=== PATIENT | female | born 1935 | race Caucasian/White ===

== ENCOUNTER 2016-07-01 13:37 | Inpatient (IN) | payer MEDICARE ==
[~2016-07-01] VITALS: Ht 167.6 cm; Wt 89.0 kg
[~2016-07-01 13:37] MED LIST: ALLO100T PO; AMLO2.5T PO; CALC667T PO; CEPH500C PO; COUM4TAB7 PO; GABA300C3 PO; RENAL PO; [UNRECOGNIZED DRUG - CODE]
[2016-07-01 13:42] VITALS: BP 180/74; PULSE 70; RESP 15; TEMP 97.8; O2SAT 97
--- NOTE | 2016-07-01 13:43 | PD ---
Physical Exam Time Seen by Provider: 13:42 Narrative 81 y/o female presents for evaluation of a "heel infection." Sent by her physician. Seen at triage desk. Awaiting bed placement. [facility] Medical Record Reviewed: Yes Supervised Visit with AICHA: Manuelito Tena July 01, 2016 13:43
[2016-07-01] MEDS ORDERED: ALLO100T PO (14:03)
[2016-07-01] MEDS ORDERED: LEVO25TA4 PO (14:03)
[2016-07-01] MEDS ORDERED: TRAM50TA PO (14:03)
[2016-07-01] MEDS ORDERED: NORV2.5T PO (14:03)
[2016-07-01] MEDS ORDERED: ALEN35TA24 PO (14:03)
[2016-07-01] MEDS ORDERED: CALC667C PO (14:03)
[2016-07-01] MEDS ORDERED: WARF-23 PO ×2 (14:03→17:10)
[2016-07-01] MEDS ORDERED: VITATAB11 PO (14:03)
[2016-07-01] MEDS ORDERED: PIPERACIL-TAZO 2.25 GM PREMIX 50 ML IV ONE (14:15)
[2016-07-01 14:50] LABS: AUTOMATED NEUTROPHIL # 3.2 TH/MM3 (1.8-7.7); BASOPHIL # 0.1 TH/MM3 (0-0.2); BASOPHIL % 0.6 % (0.0-2.0); EOSINOPHIL # 0.4 TH/MM3 (0-0.4); EOSINOPHIL % 4.4 % (0.0-4.0); HEMATOCRIT 32.2 % (35.0-46.0); LYMPH % 48.5 % (9.0-44.0); LYMPHOCYTE # 3.9 TH/MM3 (1.0-4.8); MEAN CORPUSCULAR HEMOGLOBIN 36.4 PG (27.0-34.0); MEAN CORPUSCULAR HGB CONC 34.1 % (32.0-36.0); NEUT % 39.5 % (16.0-70.0); PLATELET COUNT 218 TH/MM3 (150-450); RED BLOOD COUNT 3.01 MIL/MM3 (4.00-5.30); RED CELL DISTRIBUTION WIDTH 18.1 % (11.6-17.2)
[2016-07-01 14:55] LABS: HEMO FLAGS DIFF FINAL
[2016-07-01 15:05] LABS: ALKALINE PHOSPHATASE 83 U/L (45-117); TOTAL BILIRUBIN ADULT 0.5 MG/DL (0.2-1.0)
[2016-07-01 15:15] LABS: ALT (GPT) 15 U/L (10-53); ANION GAP 9 MEQ/L (5-15); AST (GOT) 23 U/L (15-37); BICARBONATE 26.4 MEQ/L (21.0-32.0); BLOOD UREA NITROGEN 26 MG/DL (7-18); CHLORIDE 101 MEQ/L (98-107); GLOMERULAR FILTRATION RATE 8 ML/MIN (>89); POTASSIUM 4.4 MEQ/L (3.5-5.1); SODIUM (NA) 136 MEQ/L (136-145)
[2016-07-01 15:18] VITALS: BP 149/63; PULSE 67; RESP 16; TEMP 97.8; O2SAT 98
--- NOTE | 2016-07-01 15:31 | PD ---
HPI Chief Complaint: Injury Time Seen by Provider: 13:58 Travel History International Travel<30 days: No Contact w/Intl Traveler<30days: No Traveled to known affect area: No History of Present Illness HPI This is an 81-year-old female who has a history of diabetes and end-stage renal disease who presents to the emergency department sent in by Dr. Alfonso in for concern for cellulitis involving her right heel. The patient recently had a prolonged hospitalization and penitentiary stay during which she developed a decubitus ulcer on her right heel. She's been on doxycycline for it but over the past 2 days the redness and breakdown of the skin have gotten worse, constant, moderate severity, with no associated fevers or chills. She went to see her finishing range operator today who was concerned about a deeper infection and recommended that she had be admitted to the hospital for IV antibiotics. She also requested that the vascular surgeon evaluate the patient PFSH Past Medical History Cancer: Yes (RIGHT LUNG) Cardiovascular Problems: Yes Diabetes: Yes Patient Takes Glucophage: No Dialysis: Yes (M-W-F) Diminished Hearing: No Glaucoma: No Genitourinary: Yes Hepatitis: No Hiatal Hernia: No Hypertension: Yes Respiratory: Yes (HX LUNG CANCER (RLL)) Thyroid Disease: No Influenza Vaccination: Yes Menopausal: Yes Past Surgical History Abdominal Surgery: Yes (CHOLECYSTECTOMY, APPY) Cardiac Surgery: Yes (CARDIAC STENT) Genitourinary Surgery: Yes (HYSTERECTOMY) Pacemaker: No Thoracic Surgery: Yes (RIGHT LOWER LOBECTOMY) Other Surgery: Yes (vascular surgery- dialysis shunt in right upper arm) Social History Alcohol Use: No Tobacco Use: No (quit smoking 30 years ago) Substance Use: No Allergies-Medications (Allergen,Severity, Reaction): Coded Allergies: Metformin (Unverified Allergy, Severe, swelling, 07/01/16) SWELLING IN FACE Mevacor (Verified Allergy, Unknown, rash, 07/01/16) HMG-CoA Reductase Inhibitors (Verified Adverse Reaction, Mild, weakness, ) Reported Meds & Prescriptions Reported Meds & Active Scripts Active Reported Calcium Acetate (Calcium Acetate (Phosphate Bin) 667 Mg Cap 667 Tab PO TID PRN Norvasc (Amlodipine Besylate) 2.5 Mg Tab 2.5 Mg PO DAILY Vitamin B Complex (B-Complex Vitamins) 1 Tab 1 Tab PO DAILY Allopurinol 100 Mg Tab 100 Mg PO DAILY Tramadol (Tramadol HCl) 50 Mg Tab 50 Mg PO Q6H PRN Warfarin 5 Mg Tab 5 Mg PO DAILY Levothyroxine (Levothyroxine Sodium) 25 Mcg Tab 25 Mcg PO DAILY Alendronate (Alendronate Sodium) 35 Mg Tab 35 Mg PO Q7D Review of Systems Except as stated in HPI: all other systems reviewed are Neg Physical Exam Narrative GENERAL: Frail elderly female in no acute distress SKIN: 2 cm ulceration at the heel with surrounding redness and warmth that extends up to the mid calf, no purulent drainage HEAD: Atraumatic. Normocephalic. EYES: Pupils equal and round. No injection or drainage. ENT: Moist mucous membranes NECK: Trachea midline. CARDIOVASCULAR: Regular rate and rhythm. No murmur appreciated. Bilateral lower extremities are warm with no palpable DP pulses. Capillary refill is normal. RESPIRATORY: Clear to auscultation. Breath sounds equal bilaterally. GASTROINTESTINAL: Abdomen soft, non-tender, nondistended. MUSCULOSKELETAL: No obvious deformities. NEUROLOGICAL: Awake and alert. No obvious cranial nerve deficits. Moving all extremities. PSYCHIATRIC: Appropriate mood and affect; insight and judgment normal. Data Data Last Documented VS Vital Signs Date Time Temp Pulse Resp B/P Pulse Ox O2 Delivery O2 Flow Rate FiO2 07/01/16 15:18 97.8 67 16 149/63 98 Room Air Orders Electrocardiogram (07/01/16 ) Complete Blood Count With Diff (07/01/16 14:11) Comprehensive Metabolic Panel (07/01/16 14:11) ^ Insert Iv (07/01/16 14:11) Westergren Sedimentation Rate (07/01/16 14:11) C-Reactive Protein (Crp) (07/01/16 14:11) Piperacil-Tazo 2.25 Gm Premix (Zosyn 2.2 (07/01/16 14:15) Wound Culture And Gram Stain (07/01/16 14:11) Labs Laboratory Tests Test 07/01/16 14:10 White Blood Count 8.0 TH/MM3 Red Blood Count 3.01 MIL/MM3 Hemoglobin 11.0 GM/DL Hematocrit 32.2 % Mean Corpuscular Volume 107.0 FL Mean Corpuscular Hemoglobin 36.4 PG Mean Corpuscular Hemoglobin 34.1 % Concent Red Cell Distribution Width 18.1 % Platelet Count 218 TH/MM3 Mean Platelet Volume 8.6 FL Neutrophils (%) (Auto) 39.5 % Lymphocytes (%) (Auto) 48.5 % Monocytes (%) (Auto) 7.0 % Eosinophils (%) (Auto) 4.4 % Basophils (%) (Auto) 0.6 % Neutrophils # (Auto) 3.2 TH/MM3 Lymphocytes # (Auto) 3.9 TH/MM3 Monocytes # (Auto) 0.6 TH/MM3 Eosinophils # (Auto) 0.4 TH/MM3 Basophils # (Auto) 0.1 TH/MM3 CBC Comment DIFF FINAL Differential Comment Erythrocyte Sedimentation Rate 38 mm/hr Sodium Level 136 MEQ/L Potassium Level 4.4 MEQ/L Chloride Level 101 MEQ/L Carbon Dioxide Level 26.4 MEQ/L Anion Gap 9 MEQ/L Blood Urea Nitrogen 26 MG/DL Creatinine 5.33 MG/DL Estimat Glomerular Filtration 8 ML/MIN Rate Random Glucose 207 MG/DL Calcium Level 9.0 MG/DL Total Bilirubin 0.5 MG/DL Aspartate Amino Transf 23 U/L (AST/SGOT) Alanine Aminotransferase 15 U/L (ALT/SGPT) Alkaline Phosphatase 83 U/L C-Reactive Protein 1.59 MG/DL Total Protein 6.0 GM/DL Albumin 2.6 GM/DL MDM Medical Decision Making Medical Screen Exam Complete: Yes Emergency Medical Condition: Yes Interpretation(s) Afebrile, no tachycardia, hypertensive No leukocytosis Macrocytic anemia Sedimentation rate is 38 CRP is 1.6 Differential Diagnosis Cellulitis, diabetic foot infection, abscess, osteomyelitis, sepsis Narrative Course This is an 81-year-old female who presents to the emergency department with a cellulitis involving her right heel. She was sent in by her finishing range operator for admission for IV antibiotics and vascular surgery consultation. She was placed on a monitor and an IV was established. Labs are obtained which demonstrate elevated inflammatory markers. Patient was given a dose of IV Zosyn. Dr. Espinoza is aware of the patient. She will be admitted for continued management. Diagnosis Primary Impression: Cellulitis Qualified Code: L03.115 - Cellulitis of right lower extremity Admitting Information Admitting Physician Requests: Observation Lila Jain MD July 01, 2016 15:31
[2016-07-01 16:30] VITALS: BP 122/72; PULSE 67; RESP 16; O2SAT 99
--- NOTE | 2016-07-01 17:02 | HHI.HP ---
HPI Service [facility] Hospitalists Primary Care Physician Tereza Mary M.D. Admission Diagnosis HEEL ULCERATION. Chief Complaint: HEEL ULCERATION. Travel History International Travel<30 Days: No Contact w/Intl Traveler <30 Da: No Traveled to Known Affected Are: No History of Present Illness Pt is 81 yo with dm diet controlled, htn, cad, esrd who broke her left hip and had kai Samuel Fish. Then went to [facility] for "1month". Pt says the skin over her heels were getting irritated at the snf. after d/c she reports a 10 day course of doxy for left leg cellulitis and says it resolved. But over past several days noted right heel ulceration and saw podiatry today..who sent her here for vascular eval and iv abx. Review of Systems Other right heel ulcer. Past Family Social History Past Medical History cad, cabg x 3 right lung ca. s/p resection. ..no chemoradiation. hypothyroidism htn left leg dvt esrd. on hd mwf left hip fx .s/p left kai right hip fx s/p pinning left tka kathleen/bso cholecystectomy appe Reported Medications Calcium Acetate (Calcium Acetate (Phosphate Bin) 667 Mg Cap 667 Tab PO TID PRN Norvasc (Amlodipine Besylate) 2.5 Mg Tab 2.5 Mg PO DAILY Vitamin B Complex (B-Complex Vitamins) 1 Tab 1 Tab PO DAILY Allopurinol 100 Mg Tab 100 Mg PO DAILY Tramadol (Tramadol HCl) 50 Mg Tab 50 Mg PO Q6H PRN Warfarin 6mg daily Levothyroxine (Levothyroxine Sodium) 25 Mcg Tab 25 Mcg PO DAILY Alendronate (Alendronate Sodium) 35 Mg Tab 35 Mg PO Q7D Allergies: Coded Allergies: Metformin (Unverified Allergy, Severe, swelling, 07/01/16) SWELLING IN FACE Mevacor (Verified Allergy, Unknown, rash, 07/01/16) HMG-CoA Reductase Inhibitors (Verified Adverse Reaction, Mild, weakness, ) Family History nc Social History tob x 20yr 1ppd. quit 30yrs ago Physical Exam Vital Signs nad heart reg lung cta abd s/nt ext right heel necrotic center ulceration with some surrounding erythema. not hot to touch. Vital Signs Date Time Temp Pulse Resp B/P Pulse Ox O2 Delivery O2 Flow Rate FiO2 07/01/16 16:30 67 16 122/72 99 Room Air 07/01/16 15:18 97.8 67 16 149/63 98 Room Air 07/01/16 14:06 67 16 07/01/16 13:42 97.8 70 15 180/74 97 Laboratory Laboratory Tests Test 07/01/16 14:10 White Blood Count 8.0 Red Blood Count 3.01 Hemoglobin 11.0 Hematocrit 32.2 Mean Corpuscular Volume 107.0 Mean Corpuscular Hemoglobin 36.4 Mean Corpuscular Hemoglobin 34.1 Concent Red Cell Distribution Width 18.1 Platelet Count 218 Mean Platelet Volume 8.6 Neutrophils (%) (Auto) 39.5 Lymphocytes (%) (Auto) 48.5 Monocytes (%) (Auto) 7.0 Eosinophils (%) (Auto) 4.4 Basophils (%) (Auto) 0.6 Neutrophils # (Auto) 3.2 Lymphocytes # (Auto) 3.9 Monocytes # (Auto) 0.6 Eosinophils # (Auto) 0.4 Basophils # (Auto) 0.1 CBC Comment DIFF FINAL Differential Comment Erythrocyte Sedimentation Rate 38 Sodium Level 136 Potassium Level 4.4 Chloride Level 101 Carbon Dioxide Level 26.4 Anion Gap 9 Blood Urea Nitrogen 26 Creatinine 5.33 Estimat Glomerular Filtration 8 Rate Random Glucose 207 Calcium Level 9.0 Total Bilirubin 0.5 Aspartate Amino Transf 23 (AST/SGOT) Alanine Aminotransferase 15 (ALT/SGPT) Alkaline Phosphatase 83 C-Reactive Protein 1.59 Total Protein 6.0 Albumin 2.6 Date/Time Procedure Status Source Growth 07/01/16 14:00 Gram Stain Received Wound Heel Pending 07/01/16 14:00 Wound Culture Received Wound Heel Pending Result Diagram: 07/01/16 1410 07/01/16 1410 Assessment and Plan Problem List: (1) Heel ulcer Status: Acute Plan: Pt is 81 yo with dm diet controlled, htn, cad, esrd who broke her left hip and had kai Samuel Fish. Then went to [facility] for "1month". Pt says the skin over her heels were getting irritated at the snf. after d/c she reports a 10 day course of doxy for left leg cellulitis and says it resolved. But over past several days noted right heel ulceration and saw podiatry today..who sent her here for vascular eval and iv abx. Dr García Vascular consulted to eval blood supply to necrotic appearing heel ulceration Will consult ID for opinion regarding need for abx. At present I'm not sure this is best thing until further clarification. consult podiatry consult nephrology. cont home meds PT eval (2) DM (diabetes mellitus) Status: Chronic Plan: reportedly diet controlled ssi. (3) CAD (coronary artery disease) Status: Chronic Plan: home meds (4) ESRD (end stage renal disease) on dialysis Status: Chronic Plan: consult nephrology for hd (5) History of lung cancer Status: Resolved (6) Hypothyroid Status: Chronic Physician Certification 2 Midnight Certification Type: Admission for Inpatient Services Order for Inpatient Services 3The services are ordered in accordance with Medicare regulations or non- Medicare payer requirements, as applicable. In the case of services not specified as inpatient-only, they are appropriately provided as inpatient services in accordance with the 2-midnight benchmark. Estimated LOS (days): 3 3 days is the estimated time the patient will need to remain in the hospital, assuming treatment plan goals are met and no additional complications. Post-Hospital Plan: Home Jai Veras MD July 01, 2016 17:02
--- NOTE | 2016-07-01 17:30 | MB ---
cc: JIGAR BARRIENTOS MD DATE OF CONSULTATION 07/01/[address] Barrientos, surgery REFERRING PHYSICIAN Dr. Cal Alfonso, podiatry. REASON FOR CONSULTATION Ischemia of the right foot, end-stage renal disease, diabetes mellitus. HISTORY OF THE PRESENT ILLNESS This 81-year-old lady with multiple medical problems presented to the emergency department after being sent from Dr. Alfonso's office with cellulitis of the right heel and right foot. The patient apparently was prolonged hospitalized before and developed a small decubitus of the right heel but now the whole foot appears to be shiny and sort of ischemic. Hence the admission. PAST MEDICAL HISTORY Is that of: 1. Squamous carcinoma of the lung. 2. Diabetes mellitus. 3. Hypertension. 4. End-stage renal disease. The patient is on dialysis three times a week. PAST SURGICAL HISTORY Is that of: 1. Cholecystectomy. 2. Appendectomy. 3. Hysterectomy. 4. Coronary artery stenting. 5. Bilateral hip pinning. 6. Right knee replacement. 7. And right lower lobe lobectomy. 8. As well as dialysis shunt. SOCIAL HISTORY The patient does not drink. Stopped smoking many, many years ago. REVIEW OF SYSTEMS Is normal except above noted. The patient is awake and alert and oriented. PHYSICAL EXAMINATION GENERAL: Reveals a pleasant 81-year-old lady. HEENT: Normocephalic. No trauma to the head. Pupils equally reactive. Extraocular muscles intact. NECK: Supple. Bilateral carotid pulses. No bruits. CHEST: Clear. Bilateral breath sounds decreased over both lung beckwith consistent with some degree of senile emphysema. HEART: Regular rhythm. ABDOMEN: Soft, slightly obese. Active bowel sounds. No rebound or guarding. No masses. Scars from previous surgery noted. EXTREMITIES: The patient actually has palpable femoral pulses bilateral. She has strong Doppler popliteal pulses and dorsalis pedis, posterior tibial strong by Doppler. NEUROLOGIC: She is intact. SKIN: She has a small lesion on both heels, right more than left, however, the right foot is sort of shiny and ischemic appearing especially in the distal area of the toes. The patient will get a full workup and we will see which way to go. Thank you much for the referral. Stevebodachirag EDWARDS/KK /4:53 PM 5:14 PM
[2016-07-01] MEDS ORDERED: PILL SPLITTER OTHER PRN (18:15)
--- NOTE | 2016-07-01 18:31 | PD.CONS ---
HPI Service Nephrology Consult Requested By Dr. Veras Reason for Consult ESRD management Primary Care Physician Tereza Mary M.D. History of Present Illness Patient is a 81-year-old with history of diabetes, hypertension, end-stage renal disease on hemodialysis she has a right upper arm AV graft was on dialysis on Thursday, Thursday and Thursday, patient has been having cellulitis of the legs and has developed a right heel ulcer which is not healing patient is here for further workup she states that she is going to have a CTA check her circulation. Review of Systems Constitutional: COMPLAINS OF: Fatigue Integumentary: COMPLAINS OF: Rash Neurologic: COMPLAINS OF: Abnormal gait Past Family Social History Allergies: Coded Allergies: Metformin (Unverified Allergy, Severe, swelling, 07/01/16) SWELLING IN FACE Mevacor (Verified Allergy, Unknown, rash, 07/01/16) HMG-CoA Reductase Inhibitors (Verified Adverse Reaction, Mild, weakness, ) Past Medical History Diabetes Hypertension ESRD History of lung cancer status post resection Anemia Hypothyroidism Congestive heart Failure Coronary artery disease Peripheral vascular Diabetic foot ulcer Cellulitis of legs Past Surgical History Appendectomy Cholecystectomy AV graft Right knee surgery Total hip replacement bilaterally Stent placement for coronary artery disease Right lower lobe resection Reported Medications Reported Meds & Active Scripts Active Warfarin 5 Mg Tab 6 Mg PO DAILY Reported Calcium Acetate (Calcium Acetate (Phosphate Bin) 667 Mg Cap 667 Tab PO TID PRN Norvasc (Amlodipine Besylate) 2.5 Mg Tab 2.5 Mg PO DAILY Vitamin B Complex (B-Complex Vitamins) 1 Tab 1 Tab PO DAILY Allopurinol 100 Mg Tab 100 Mg PO DAILY Tramadol (Tramadol HCl) 50 Mg Tab 50 Mg PO Q6H PRN Levothyroxine (Levothyroxine Sodium) 25 Mcg Tab 25 Mcg PO DAILY Alendronate (Alendronate Sodium) 35 Mg Tab 35 Mg PO Q7D Active Ordered Medications Current Medications Medications (Trade) Dose Ordered Sig/[place] Route Start Time Stop Time Status Last Admin (Zyloprim) 100 mg DAILY PO 07/02/16 09:00 (Norvasc) 2.5 mg DAILY PO 07/02/16 09:00 (Synthroid) 25 mcg DAILY@06 PO 07/02/16 06:00 (Ultram) 50 mg Q6H PRN PO 07/01/16 17:00 (Coumadin) 6 mg DAILY@16 PO 07/02/16 16:00 UNV (Pill Splitter) 1 ea UNSCH PRN OTHER 07/01/16 18:15 Family History Noncontributory Social History Denies smoking or alcohol use Physical Exam Vital Signs Vital Signs Date Time Temp Pulse Resp B/P Pulse Ox O2 Delivery O2 Flow Rate FiO2 07/01/16 16:30 67 16 122/72 99 Room Air 07/01/16 15:18 97.8 67 16 149/63 98 Room Air 07/01/16 14:06 67 16 07/01/16 13:42 97.8 70 15 180/74 97 Physical Exam GENERAL: Well-nourished, well-developed patient. SKIN: Warm and dry. HEAD: Normocephalic. EYES: No scleral icterus. No injection or drainage. NECK: Supple, trachea midline. No JVD or lymphadenopathy. CARDIOVASCULAR: Regular rate and rhythm without murmurs, gallops, or rubs. RESPIRATORY: Breath sounds equal bilaterally. No accessory muscle use. GASTROINTESTINAL: Abdomen soft, non-tender, nondistended. EXTREMITIES: No cyanosis, or edema. Right heel has a ulcer posteriorly AV graft and right arm NEUROLOGICAL: Awake, alert, and oriented x 3. Non-focal. Laboratory Laboratory Tests Test 07/01/16 14:10 White Blood Count 8.0 Red Blood Count 3.01 Hemoglobin 11.0 Hematocrit 32.2 Mean Corpuscular Volume 107.0 Mean Corpuscular Hemoglobin 36.4 Mean Corpuscular Hemoglobin 34.1 Concent Red Cell Distribution Width 18.1 Platelet Count 218 Mean Platelet Volume 8.6 Neutrophils (%) (Auto) 39.5 Lymphocytes (%) (Auto) 48.5 Monocytes (%) (Auto) 7.0 Eosinophils (%) (Auto) 4.4 Basophils (%) (Auto) 0.6 Neutrophils # (Auto) 3.2 Lymphocytes # (Auto) 3.9 Monocytes # (Auto) 0.6 Eosinophils # (Auto) 0.4 Basophils # (Auto) 0.1 CBC Comment DIFF FINAL Differential Comment Erythrocyte Sedimentation Rate 38 Sodium Level 136 Potassium Level 4.4 Chloride Level 101 Carbon Dioxide Level 26.4 Anion Gap 9 Blood Urea Nitrogen 26 Creatinine 5.33 Estimat Glomerular Filtration 8 Rate Random Glucose 207 Calcium Level 9.0 Total Bilirubin 0.5 Aspartate Amino Transf 23 (AST/SGOT) Alanine Aminotransferase 15 (ALT/SGPT) Alkaline Phosphatase 83 C-Reactive Protein 1.59 Total Protein 6.0 Albumin 2.6 Date/Time Procedure Status Source Growth 07/01/16 14:00 Gram Stain Received Wound Heel Pending 07/01/16 14:00 Wound Culture Received Wound Heel Pending Result Diagram: 07/01/16 1410 07/01/16 1410 Assessment and Plan Problem List: (1) ESRD (end stage renal disease) on dialysis Plan: Hemodialysis will be arranged for Thursday, Thursday and Thursday according to her outpatient schedule continue supportive care She may need a CTA of the legs and we will have to arrange it to prior to dialysis (2) DM (diabetes mellitus) Plan: Continue to monitor blood sugars (3) Heel ulcer Plan: CTA ordered (4) Cellulitis Plan: She is on antibiotic vancomycin can be given at dialysis Problem Qualifiers (1) DM (diabetes mellitus): (2) Cellulitis: Qualified Code: L03.115 - Cellulitis of right lower extremity Obdulia Washburn MD July 01, 2016 18:31
[2016-07-01] MEDS ORDERED: VANCOMYCIN INJ 1,000 MG in SODIUM CHLOR 0.9% 250 ML INJ 250 ML IV SCH (18:45)
[2016-07-01] MEDS ORDERED: IODIXANOL 320 MG/ML 50 ML VIAL (for Rad CT) IV ONE (18:58)
[2016-07-01 19:08] LABS: INTERNATIONAL NORMALIZED RATIO 1.2 RATIO; PROTHROMBIN TIME - PATIENT 13.6 SEC (9.8-11.6)
[2016-07-01 20:00] VITALS: BP 117/54; PULSE 69; RESP 17; TEMP 97; O2SAT 95
[2016-07-01] MEDS: traMADol HCL 50 MG TAB PO PRN (22:10)
--- NOTE | 2016-07-01 23:24 | RADRPT ---
EXAM DATE/TIME: 07/01/2016 18:37 [place] COMPARISON: No previous studies available for comparison. INDICATIONS : Ischemia right foot IV CONTRAST: 92 cc Visipaque (iodixanol) IV RADIATION DOSE: 12.70 CTDIvol (mGy) MEDICAL HISTORY : Carcinoma, lung. Cardiovascular disease Diabetes mellitus type 2.Dialysis SURGICAL HISTORY : Hysterectomy. Neuromstimultor ENCOUNTER: Initial ACUITY: 1 week PAIN SCALE: 4/10 LOCATION: Right foot TECHNIQUE: Volumetric scanning was performed using a multi-row detector CT scanner. The data was post processed with a variety of visualization algorithms including full volume maximum intensity projection, multi -planar sliding thin slab reformation, curved planar reformation, and surface rendering techniques. Using automated exposure control and adjustment of the mA and/or kV according to patient size, radiat ion dose was kept as low as reasonably achievable to obtain optimal diagnostic quality images. FINDINGS: Examination of the lung bases demonstrates no abnormality. No pleural fluid is identified. No pulmona ry nodules are present. The liver and spleen are normal in size and no focal defects are identified. The gallbladder and pancreas are unremarkable. No intrahepatic or extrahepatic ductal dilatation is s een. The adrenal glands and kidneys appear normal bilaterally. No hydronephrosis or mass lesions are identified. An inferior vena cava filter is in place. There is diverticulosis without evidence of div erticulitis. The aorta is normal in caliber. There is no evidence of aneurysm or dissection. There is 70-80% steno sis at the origin of the renal arteries bilaterally. There is 50-60% stenosis at the origin of the ce liac and superior mesenteric arteries. Examination of the right lower extremity demonstrates no evidence of inflow stenosis. The common femo ral artery is patent. The there is arterial magna present with limited evaluation of the femoral robin john. There is dense calcification of the trifurcation vessels as which limits evaluation. No segment al occlusion is identified. Examination of the left lower extremity demonstrates no evidence of inflow stenosis. The common femor al artery is patent. The proximal superficial femoral artery is patent. There is dense calcification of the popliteal and infrapopliteal vessels. CONCLUSION: 1. No evidence of inflow stenosis. 2. Mild arterial magna with severe calcific lower extremity disease bilaterally. Catheter angiography is recommended for further evaluation if clinically indicated. Tanmay Greenberg MD on July 01, 2016 at 23:12 Board Certified Radiologist. This report was verified electronically.
[2016-07-02] VITALS: BP 117/54; PULSE 69; RESP 17; TEMP 97; O2SAT 95
[2016-07-02] MEDS ORDERED: LEVOTHYROXINE SODIUM 25 MCG TAB PO SCH (06:00)
[2016-07-02 06:23] LABS: AUTOMATED NEUTROPHIL # 2.4 TH/MM3 (1.8-7.7); BASOPHIL % 0.6 % (0.0-2.0); EOSINOPHIL # 0.3 TH/MM3 (0-0.4); EOSINOPHIL % 5.2 % (0.0-4.0); HEMATOCRIT 29.8 % (35.0-46.0); HEMO FLAGS DIFF FINAL; LYMPH % 47.3 % (9.0-44.0); MEAN CELL VOLUME 106.5 FL (80.0-100.0); MEAN CORPUSCULAR HEMOGLOBIN 35.2 PG (27.0-34.0); MONO % 8.9 % (0.0-8.0); PLATELET COUNT 168 TH/MM3 (150-450); RED BLOOD COUNT 2.79 MIL/MM3 (4.00-5.30); RED CELL DISTRIBUTION WIDTH 17.8 % (11.6-17.2); WHITE BLOOD COUNT 6.4 TH/MM3 (4.0-11.0)
[2016-07-02 06:33] LABS: INTERNATIONAL NORMALIZED RATIO 1.2 RATIO; PROTHROMBIN TIME - PATIENT 13.6 SEC (9.8-11.6)
[2016-07-02 06:43] LABS: BICARBONATE 25.6 MEQ/L (21.0-32.0); POTASSIUM 4.7 MEQ/L (3.5-5.1)
[2016-07-02] MEDS: traMADol HCL 50 MG TAB PO PRN (06:49)
[2016-07-02 08:00] VITALS: BP 139/65; PULSE 71; RESP 20; TEMP 97.9; O2SAT 96
[2016-07-02] MEDS ORDERED: SODIUM CHLOR 0.9% 1000 ML INJ 1,000 ML IV PRN ×3 (08:27)
[2016-07-02] MEDS ORDERED: SODIUM CHLORIDE 0.9% FLUSH 10 ML FLUSH IV FLUSH PRN (08:30)
[2016-07-02] MEDS ORDERED: EPOETIN ALFA 4,000 UNITS/ML VIAL IV PRN (08:30)
[2016-07-02] MEDS ORDERED: MANNITOL 12.5 GM/50 ML VIAL IV PRN (08:30)
[2016-07-02] MEDS ORDERED: ALBUMIN HUMAN 25% 25 GM/100 ML BAGP IV PRN (08:30)
[2016-07-02] MEDS ORDERED: cloNIDine HCL 0.1 MG TAB PO PRN (08:30)
[2016-07-02] MEDS ORDERED: ONDANSETRON HCL 4 MG/2 ML VIAL IV PRN (08:30)
[2016-07-02] MEDS ORDERED: HEPARIN SODIUM - IV 10,000 UNITS/10 ML VIAL IVF PRN ×2 (08:30)
[2016-07-02] MEDS ORDERED: ACETAMINOPHEN 325 MG TAB PO PRN (08:30)
[2016-07-02] MEDS ORDERED: NITROGLYCERIN 0.4 MG SL 25 TABS/BTL SL PRN (08:30)
[2016-07-02] MEDS ORDERED: diphenhydrAMINE HCL 25 MG CAP PO PRN (08:30)
[2016-07-02] MEDS ORDERED: GELATIN 12 MM/7 MM FOAM TOP PRN (08:30)
[2016-07-02] MEDS ORDERED: amLODIPine BESYLATE 5 MG TAB PO SCH (09:00)
[2016-07-02] MEDS ORDERED: ALLOPURINOL 100 MG TAB PO SCH (09:00)
--- NOTE | 2016-07-02 09:09 | HHI.NPPN ---
Subjective History of Present Illness 81 year old WF with ESRD, Rt heel ulcer/cellulitis Review of Systems Musculoskeletal MS: Pain/Stiffness Objective Data Data 07/01/16 07/02/16 19:00 07:00 Intake Total 180 ml 480 ml Balance 180 ml 480 ml Intake Oral 180 ml 480 ml IV Total 0 ml # Voids 3 # Bowel Movements 0 Vital Signs Date Time Temp Pulse Resp B/P Pulse Ox O2 Delivery O2 Flow Rate FiO2 07/02/16 00:00 97.0 69 17 117/54 95 07/01/16 20:00 97.0 69 17 117/54 95 07/01/16 16:30 67 16 122/72 99 Room Air 07/01/16 15:18 97.8 67 16 149/63 98 Room Air 07/01/16 14:06 67 16 07/01/16 13:42 97.8 70 15 180/74 97 -: 07/02/16 0543 07/02/16 0543 Microbiology 07/01/16 Gram Stain - Final, Resulted 07/01/16 Wound Culture, Resulted Pending Imaging Last Impressions Aorta w/Runoff CTA 07/01/16 0000 Signed Impressions: Service Date/Time: Friday, July 01, 2016 18:37 - CONCLUSION: 1. No evidence of inflow stenosis. 2. Mild arterial magna with severe calcific lower extremity disease bilaterally. Catheter angiography is recommended for further evaluation if clinically indicated. Tanmay Greenberg MD Physical Exam General Appearance: Well Developed, Well Nourished Neck Neck Exam: Neck Supple Pulmonary Resp Exam: Clear Bilaterally, Breath Sounds Equal Cardiology CV Exam: Regular, Normal Sinus Rhythm Gastrointestinal/Abdomen GI Exam: Soft, Non-Tender, Bowel Sounds Present Integumentary Skin Exam: Ulcer(s) (rt heel) Extremeties Extremities Exam: No Edema Neurologic Neuro Exam: Alert, Awake Assessment/Plan Problem List: (1) ESRD (end stage renal disease) on dialysis Plan: Hemodialysis will be arranged for Thursday, Thursday and Thursday CTA no inflow stenosis, heavy calcification of vessels HD today 07/02 1110am seen at dialysis Dr. Astrid Coffeyo UF 2L (2) DM (diabetes mellitus) Plan: Continue to monitor blood sugars (3) Heel ulcer Plan: CTA reviewed (4) Cellulitis Plan: She is on antibiotic vancomycin can be given at dialysis Problem Qualifiers (1) DM (diabetes mellitus): (2) Cellulitis: Qualified Code: L03.115 - Cellulitis of right lower extremity Obdulia Washburn MD July 02, 2016 09:09
--- NOTE | 2016-07-02 09:16 | EKG ---
Date Performed: 07/01/2016 Time Performed: 13:56:38 PTAGE: 81 years EKG: Sinus rhythm BORDERLINE LEFT AXIS DEVIATION INCOMPLETE RIGHT BUNDLE BRANCH BLOCK MODERATE ST DEPRESSION ABNORMAL ECG PREVIOUS TRACING : 06/05/2014 08.19 DOCTOR: John May Interpretating Date/Time 07/02/2016 09:15:51
--- NOTE | 2016-07-02 10:02 | PD.CONS ---
History of Present Illness Service Infectious disease Consult Requested By Dr Moses Reason for Consult Evaluate patient with right heel ulcer,? Need for antibiotic Primary Care Physician Tereza Mary M.D. Diagnoses: History of Present Illness Patient seen and examined. Records reviewed. Patient is an 81-year-old female presented to the hospital after she was seen by her program or project administrator for her right heel ulceration. Patient was hospitalized at [facility] in April when she sustained a left hip fracture. She underwent left hip arthroplasty, and from there she was discharged to a rehabilitation facility where she stayed for about a month. She was discharge around May 30. Patient stated she had some blisters in her heel when she was discharge. About 4 days prior to admission she noted a wound on her right heel. She did not really see any significant drainage or any redness going up her leg. She has not had any fever or chills or sweats. Apparently she had received a course of doxycycline after she was discharged from the rehabilitation for cellulitis in her left leg. Patient usually sees a program or project administrator, and she was seen on the day of admission, and from there the patient was advised to go to the hospital for further evaluation and treatment. Since admission she has not had any fever. Her WBC is normal. Patient has been seen by vascular surgery, and currently to undergo vascular workup. She has received a dose of Zosyn, and there is a vancomycin order to be given with her hemodialysis. Infectious disease consultation has been requested to evaluate need for antibiotics in a patient with an ulcer in her right heel. Review of Systems Constitutional: DENIES: Fever, Chills Eyes: DENIES: Eye pain Ears, nose, mouth, throat: DENIES: Nasal discharge, Oral lesions, Throat pain, Sinus Pain, Toothache Respiratory: DENIES: Cough, Shortness of breath Cardiovascular: DENIES: Chest pain, Palpitations, Syncope Gastrointestinal: DENIES: Abdominal pain, Diarrhea, Nausea, Vomiting, Difficulty Swallowing Genitourinary: DENIES: Dysuria Musculoskeletal: COMPLAINS OF: Joint pain, DENIES: Muscle aches, Joint Swelling Integumentary: DENIES: Rash, Nipple discharge Hematologic/lymphatic: COMPLAINS OF: Bruising Immunologic/allergic: DENIES: Urticaria Neurologic: DENIES: Headache Psychiatric: DENIES: Confusion, Hallucinations Past Family Social History Allergies: Coded Allergies: Metformin (Unverified Allergy, Severe, swelling, 07/01/16) SWELLING IN FACE Mevacor (Verified Allergy, Unknown, rash, 07/01/16) HMG-CoA Reductase Inhibitors (Verified Adverse Reaction, Mild, weakness, ) Past Medical History CAD Lung cancer right Hypothyroidism Hypertension ESRD, on HD LLE DVT Past Surgical History Left hip fracture, status post LHA Right hip fracture status post pinning Right total knee arthroplasty EVA/BSO Cholecystectomy Appendectomy CABG AV graft right upper extremity Status post resection of lung cancer Active Ordered Medications Tylenol prn Albumin prn Allopurinol Norvasc Clonidine prn Benadryl prn Epogen Heparin Synthroid Mannitol prn SL NTG prn Zofran prn Ultram prn Vancomycin Coumadin Social History Ex-smoker, quit 20 years ago No alcohol abuse No drug use Physical Exam Vital Signs Vital Signs Date Time Temp Pulse Resp B/P Pulse Ox O2 Delivery O2 Flow Rate FiO2 07/02/16 08:00 97.9 71 20 139/65 96 07/02/16 00:00 97.0 69 17 117/54 95 07/01/16 20:00 97.0 69 17 117/54 95 07/01/16 16:30 67 16 122/72 99 Room Air 07/01/16 15:18 97.8 67 16 149/63 98 Room Air 07/01/16 14:06 67 16 07/01/16 13:42 97.8 70 15 180/74 97 Physical Exam GENERAL: This is a well-nourished, well-developed female, awake and alert, in no apparent distress. SKIN: Cool and dry. No generalized rash. She has some ecchymosis from previous venipuncture sites. HEAD: Atraumatic. Normocephalic. No temporal or scalp tenderness. EYES: [place] conjunctivae, no petechia or hemorrhage. Pupils equal round and reactive. Extraocular motions intact. No scleral icterus. No injection or drainage. ENT: Nose without bleeding, or purulent drainage. Moist oral mucosa, she wears upper dentures. Throat without erythema, or exudate. Uvula midline. Airway patent. NECK: Trachea midline. No JVD or lymphadenopathy. Supple, nontender, no meningeal signs. CARDIOVASCULAR: Regular rate and rhythm without murmurs, gallops, or rubs. Has occasional skipped beats. Healed sternotomy incision compatible with her surgical history RESPIRATORY: Clear to auscultation. Breath sounds equal bilaterally. No wheezes , rales, or rhonchi. GASTROINTESTINAL: Abdomen soft, bowel sounds are present and normoactive, non- tender, nondistended. No organomegaly or masses palpated. No guarding. No rebound. MUSCULOSKELETAL: AVG RUE looks ok. LLE: warm, no open wound seen. RLE: Cool skin from mid leg down to foot. Has a dry ulcer R heel, size of a dime, with no purulence. No significant cellulitis seen. No tenderness, no swelling. Has reddish pinpoint ?petechia in her toes on R foot, all toes cool to touch, not cyanotic. No calf tenderness. Scar R knee from her RTKA, knee looks bigger compared to L knee, but no redness, or any pain with ROM. Well healed incisions in hips. NEUROLOGICAL: Awake and alert. Cranial nerves II through XII intact. Five out of 5 muscle strength in all muscle groups. Normal speech. PSYCH: Normal affect, calm and cooperative LINE: PIV with no evidence of infection Laboratory Laboratory Tests Test 07/01/16 07/01/16 07/02/16 14:10 17:50 05:43 White Blood Count 8.0 6.4 Red Blood Count 3.01 2.79 Hemoglobin 11.0 9.8 Hematocrit 32.2 29.8 Mean Corpuscular Volume 107.0 106.5 Mean Corpuscular Hemoglobin 36.4 35.2 Mean Corpuscular Hemoglobin 34.1 33.0 Concent Red Cell Distribution Width 18.1 17.8 Platelet Count 218 168 Mean Platelet Volume 8.6 7.6 Neutrophils (%) (Auto) 39.5 38.0 Lymphocytes (%) (Auto) 48.5 47.3 Monocytes (%) (Auto) 7.0 8.9 Eosinophils (%) (Auto) 4.4 5.2 Basophils (%) (Auto) 0.6 0.6 Neutrophils # (Auto) 3.2 2.4 Lymphocytes # (Auto) 3.9 3.0 Monocytes # (Auto) 0.6 0.6 Eosinophils # (Auto) 0.4 0.3 Basophils # (Auto) 0.1 0.0 CBC Comment DIFF FINAL DIFF FINAL Differential Comment Erythrocyte Sedimentation Rate 38 Sodium Level 136 138 Potassium Level 4.4 4.7 Chloride Level 101 103 Carbon Dioxide Level 26.4 25.6 Anion Gap 9 9 Blood Urea Nitrogen 26 35 Creatinine 5.33 6.14 Estimat Glomerular Filtration 8 7 Rate Random Glucose 207 83 Calcium Level 9.0 8.4 Total Bilirubin 0.5 Aspartate Amino Transf 23 (AST/SGOT) Alanine Aminotransferase 15 (ALT/SGPT) Alkaline Phosphatase 83 C-Reactive Protein 1.59 Total Protein 6.0 Albumin 2.6 Prothrombin Time 13.6 13.6 Prothromb Time International 1.2 1.2 Ratio Activated Partial 27.0 Thromboplast Time Vitamin B12 Level 792 Date/Time Procedure Status Source Growth 07/01/16 14:00 Gram Stain - Final Resulted Wound Heel 07/01/16 14:00 Wound Culture Resulted Wound Heel Pending Result Diagram: 07/02/16 0543 07/02/16 0543 Imaging RADIOLOGY STUDIES/FILMS REVIEWED Aorta w/Runoff CTA 07/01/16 0000 Signed Impressions: Service Date/Time: Friday, July 01, 2016 18:37 - CONCLUSION: 1. No evidence of inflow stenosis. 2. Mild arterial magna with severe calcific lower extremity disease bilaterally. Catheter angiography is recommended for further evaluation if clinically indicated. Tanmay Greenberg MD Assessment and Plan Assessment and Plan IMPRESSION Dry ulcer R heel, no evidence of infection, has findings of PVD Known CAD, S/P CABG ESRD on HD RECOMMENDATION Vascular work-up in progress No need for any antibiotics at this time since clinically there are no findings to indicate infection Stop IV Vancomycin Wound care to the R heel NO need for any ID intervention at this time. I will be available if needed, if there are any ID issue or question that will come up Please reconsult if any further ID assistance if needed Thank you for this consultation Discussed Condition With Explained my findings and recommendations to patient Discussed with Jessy Choudhary MD July 02, 2016 10:02
--- NOTE | 2016-07-02 10:03 | HHI.PR ---
Subjective Remarks Pt complained of burning sharp pain in her RLE this morning. This improved slightly with pain meds but then after about 2 hours went away on its own. Pt is going for dialysis this morning. Objective Vitals Vital Signs Date Time Temp Pulse Resp B/P Pulse Ox O2 Delivery O2 Flow Rate FiO2 07/02/16 08:00 97.9 71 20 139/65 96 07/02/16 00:00 97.0 69 17 117/54 95 07/01/16 20:00 97.0 69 17 117/54 95 07/01/16 16:30 67 16 122/72 99 Room Air 07/01/16 15:18 97.8 67 16 149/63 98 Room Air 07/01/16 14:06 67 16 07/01/16 13:42 97.8 70 15 180/74 97 07/01/16 07/01/16 07/02/16 15:00 23:00 07:00 Intake Total 420 ml 240 ml Balance 420 ml 240 ml Intake Oral 420 ml 240 ml IV Total 0 ml # Voids 1 2 # Bowel Movements 0 Result Diagram: 07/02/16 0543 07/02/16 0543 Other Results Laboratory Tests Test 07/01/16 07/01/16 07/02/16 14:10 17:50 05:43 White Blood Count 8.0 TH/MM3 6.4 TH/MM3 Red Blood Count 3.01 MIL/MM3 2.79 MIL/MM3 Hemoglobin 11.0 GM/DL 9.8 GM/DL Hematocrit 32.2 % 29.8 % Mean Corpuscular Volume 107.0 FL 106.5 FL Mean Corpuscular Hemoglobin 36.4 PG 35.2 PG Mean Corpuscular Hemoglobin 34.1 % 33.0 % Concent Red Cell Distribution Width 18.1 % 17.8 % Platelet Count 218 TH/MM3 168 TH/MM3 Mean Platelet Volume 8.6 FL 7.6 FL Neutrophils (%) (Auto) 39.5 % 38.0 % Lymphocytes (%) (Auto) 48.5 % 47.3 % Monocytes (%) (Auto) 7.0 % 8.9 % Eosinophils (%) (Auto) 4.4 % 5.2 % Basophils (%) (Auto) 0.6 % 0.6 % Neutrophils # (Auto) 3.2 TH/MM3 2.4 TH/MM3 Lymphocytes # (Auto) 3.9 TH/MM3 3.0 TH/MM3 Monocytes # (Auto) 0.6 TH/MM3 0.6 TH/MM3 Eosinophils # (Auto) 0.4 TH/MM3 0.3 TH/MM3 Basophils # (Auto) 0.1 TH/MM3 0.0 TH/MM3 CBC Comment DIFF FINAL DIFF FINAL Differential Comment Erythrocyte Sedimentation Rate 38 mm/hr Sodium Level 136 MEQ/L 138 MEQ/L Potassium Level 4.4 MEQ/L 4.7 MEQ/L Chloride Level 101 MEQ/L 103 MEQ/L Carbon Dioxide Level 26.4 MEQ/L 25.6 MEQ/L Anion Gap 9 MEQ/L 9 MEQ/L Blood Urea Nitrogen 26 MG/DL 35 MG/DL Creatinine 5.33 MG/DL 6.14 MG/DL Estimat Glomerular Filtration 8 ML/MIN 7 ML/MIN Rate Random Glucose 207 MG/DL 83 MG/DL Calcium Level 9.0 MG/DL 8.4 MG/DL Total Bilirubin 0.5 MG/DL Aspartate Amino Transf 23 U/L (AST/SGOT) Alanine Aminotransferase 15 U/L (ALT/SGPT) Alkaline Phosphatase 83 U/L C-Reactive Protein 1.59 MG/DL Total Protein 6.0 GM/DL Albumin 2.6 GM/DL Prothrombin Time 13.6 SEC 13.6 SEC Prothromb Time International 1.2 RATIO 1.2 RATIO Ratio Activated Partial 27.0 SEC Thromboplast Time Vitamin B12 Level 792 PG/ML Imaging Last Impressions Aorta w/Runoff CTA 07/01/16 0000 Signed Impressions: Service Date/Time: Friday, July 01, 2016 18:37 - CONCLUSION: 1. No evidence of inflow stenosis. 2. Mild arterial magna with severe calcific lower extremity disease bilaterally. Catheter angiography is recommended for further evaluation if clinically indicated. Tanmay Greenberg MD Objective Remarks General: NAD, AAOx3 Chest: CTA Cardiac: Regular Abd: +BS, soft ND/NT Ext: RLE cooler from the mid dudley down to the foot compared to the LLE. Right heel necrotic center ulceration with some surrounding erythema A/P Problem List: (1) Heel ulcer Status: Acute Plan: - Pt is 81 yo with DM diet controlled, HTN, CAD, and ESRD on HD who broke her left hip and had PATRICK at [facility]. Then went to [facility] for "1month." Pt says the skin over her heels were getting irritated at the SNF. After d/c she reports a 10 day course of doxy for left leg cellulitis and says it resolved. But over past several days noted right heel ulceration and saw podiatry on the day of admission who sent her to the ED for vascular eval and iv abx. - Dr Barrientos was consulted to eval blood supply to necrotic appearing heel ulceration - CTA with runoff --> No evidence of inflow stenosis. Mild arterial magna with severe calcific lower extremity disease bilaterally. Catheter angiography is recommended for further evaluation if clinically indicated. - ID, Dr. Young, has seen the pt and does not feel there is any need for abx at present. - Await recommendations from Vascular surgery - Podiatry is consulted - Home meds continued - PT eval - Pt is on Coumadin, but INR is subtherapeutic, 1.2 (2) DM (diabetes mellitus) Status: Chronic Plan: - Reportedly diet controlled - NovoLog SSI. - Accu checks (3) CAD (coronary artery disease) Status: Chronic Plan: - Home meds continued (4) ESRD (end stage renal disease) on dialysis Status: Chronic Plan: - Nephrology following - Pt for HD -- (5) History of lung cancer Status: Resolved (6) Hypothyroid Status: Chronic Assessment and Plan Patient examined. Assessment and plan formulated with Vielka Wylie PA-C. I agree with the above. heel pressure ulcer. no obvious vascular deficit to repair per vascular surgery. no abx recommended per ID. santyl ordered per podiatry. [facility]. d/c home. Problem Qualifiers (1) DM (diabetes mellitus): Vielka Wylie July 02, 2016 10:03 Jai Veras MD July 02, 2016 14:38
--- NOTE | 2016-07-02 12:58 | PD.CONS ---
History of Present Illness Service Podiatry Consult Requested By ED Reason for Consult R heel wound, with erythema. L calf with continued erythema Primary Care Physician Tereza Mary M.D. Diagnoses: History of Present Illness 81-year-old female here for evaluation with continued erythema and edema to legs that did not improve with oral doxycycline as outpatient and was seen in clinic yesterday with erythema surrounding a wound to posterior R heel at achilles tendon area what did not yet have exposed achilles tendon present. She was sent in for IV antibiotics to see if the erythema would improve with stronger medication, as well as further vascular evaluation due to history of nonhealing wound and this new questionably infected wound that has been present for 2 months near the achilles tendon area. She had hip fracture and was at [facility], then got a heel ulcer that came from a blister on the heel when immobilized. She has not had any fever or chills or sweats. Since admission she has not had any fever. Her WBC is normal. Patient has been seen by vascular surgery, and currently to undergo vascular workup. She has received a dose of Zosyn, and there is a vancomycin order to be given with her hemodialysis. ID states no need for IV antibiotics at this time Past Family Social History Allergies: Coded Allergies: Metformin (Unverified Allergy, Severe, swelling, 07/01/16) SWELLING IN FACE Mevacor (Verified Allergy, Unknown, rash, 07/01/16) HMG-CoA Reductase Inhibitors (Verified Adverse Reaction, Mild, weakness, ) Past Medical History CAD R lung cancer, s/p resection Hypothyroidism HTN L leg DVT history ESRD Past Surgical History left hip fx, s/p left kai right hip fx s/p pinning left tka cholecystectomy appendectomy Active Ordered Medications Current Medications Medications (Trade) Dose Ordered Sig/[place] Route Start Time Stop Time Status Last Admin (Zyloprim) 100 mg DAILY PO 07/02/16 09:00 07/02/16 07:50 (Norvasc) 2.5 mg DAILY PO 07/02/16 09:00 (Synthroid) 25 mcg DAILY@06 PO 07/02/16 06:00 07/02/16 06:49 (Ultram) 50 mg Q6H PRN PO 07/01/16 17:00 07/02/16 06:49 (Coumadin) 6 mg DAILY@16 PO 07/02/16 16:00 Miscellaneous 1 ea 1 ea UNSCH PRN OTHER 07/01/16 18:15 (NS 1000 ml Inj) 1,000 ml @ 0 mls/hr Q0M PRN IV 07/02/16 08:27 (Heparin Inj) 8,000 units UNSCH PRN IVF 07/02/16 08:30 Heparin Sodium (Porcine) 1000 units 1,000 units Q1H PRN IVF 07/02/16 08:30 Sodium Chloride 1,000 ml @ 200 mls/hr Q5H PRN IV 07/02/16 08:27 (NS 1000 ml Inj) 1,000 ml @ 0 mls/hr Q0M PRN IV 07/02/16 08:27 (Mannitol Inj) 12.5 gm UNSCH PRN IV 07/02/16 08:30 (Albumin 25% Inj) 25 gm UNSCH PRN IV 07/02/16 08:30 (NS Flush) 5 ml UNSCH PRN IV FLUSH 07/02/16 08:30 (Zofran Inj) 4 mg UNSCH PRN IV 07/02/16 08:30 (Tylenol) 650 mg UNSCH PRN PO 07/02/16 08:30 (Benadryl) 25 mg UNSCH PRN PO 07/02/16 08:30 (Nitrostat Sl) 0.4 mg UNSCH PRN SL 07/02/16 08:30 (Catapres) 0.1 mg UNSCH PRN PO 07/02/16 08:30 (Epogen Inj) 4,000 units UNSCH PRN IV 07/02/16 08:30 07/02/16 12:56 (Gelfoam 12 Mm/7 Mm Top) 1 foam UNSCH PRN TOP 07/02/16 08:30 (Santyl Oint) 1 applic DAILY TOPICAL 07/03/16 09:00 Family History noncontributory Social History 20 pack year history, but quit 30yrs ago Physical Exam Vital Signs Vital Signs Date Time Temp Pulse Resp B/P Pulse Ox O2 Delivery O2 Flow Rate FiO2 07/02/16 08:00 97.9 71 20 139/65 96 07/02/16 00:00 97.0 69 17 117/54 95 07/01/16 20:00 97.0 69 17 117/54 95 07/01/16 16:30 67 16 122/72 99 Room Air 07/01/16 15:18 97.8 67 16 149/63 98 Room Air 07/01/16 14:06 67 16 07/01/16 13:42 97.8 70 15 180/74 97 Physical Exam R posterior heel has ulceration approx. 1cm diameter, 100% fibrotic. No visible achilles tendon. There is localized erythema, but no purulence present at this time. Not boggy. No necrotic tissue. No foul odor. Laboratory Laboratory Tests Test 07/01/16 07/01/16 07/02/16 14:10 17:50 05:43 White Blood Count 8.0 6.4 Red Blood Count 3.01 2.79 Hemoglobin 11.0 9.8 Hematocrit 32.2 29.8 Mean Corpuscular Volume 107.0 106.5 Mean Corpuscular Hemoglobin 36.4 35.2 Mean Corpuscular Hemoglobin 34.1 33.0 Concent Red Cell Distribution Width 18.1 17.8 Platelet Count 218 168 Mean Platelet Volume 8.6 7.6 Neutrophils (%) (Auto) 39.5 38.0 Lymphocytes (%) (Auto) 48.5 47.3 Monocytes (%) (Auto) 7.0 8.9 Eosinophils (%) (Auto) 4.4 5.2 Basophils (%) (Auto) 0.6 0.6 Neutrophils # (Auto) 3.2 2.4 Lymphocytes # (Auto) 3.9 3.0 Monocytes # (Auto) 0.6 0.6 Eosinophils # (Auto) 0.4 0.3 Basophils # (Auto) 0.1 0.0 CBC Comment DIFF FINAL DIFF FINAL Differential Comment Erythrocyte Sedimentation Rate 38 Sodium Level 136 138 Potassium Level 4.4 4.7 Chloride Level 101 103 Carbon Dioxide Level 26.4 25.6 Anion Gap 9 9 Blood Urea Nitrogen 26 35 Creatinine 5.33 6.14 Estimat Glomerular Filtration 8 7 Rate Random Glucose 207 83 Calcium Level 9.0 8.4 Total Bilirubin 0.5 Aspartate Amino Transf 23 (AST/SGOT) Alanine Aminotransferase 15 (ALT/SGPT) Alkaline Phosphatase 83 C-Reactive Protein 1.59 Total Protein 6.0 Albumin 2.6 Prothrombin Time 13.6 13.6 Prothromb Time International 1.2 1.2 Ratio Activated Partial 27.0 Thromboplast Time Vitamin B12 Level 792 Date/Time Procedure Status Source Growth 07/01/16 14:00 Gram Stain - Final Resulted Wound Heel 07/01/16 14:00 Wound Culture Resulted Wound Heel Pending Result Diagram: 07/02/16 0543 07/02/16 0543 Imaging Last Impressions Aorta w/Runoff CTA 07/01/16 0000 Signed Impressions: Service Date/Time: Friday, July 01, 2016 18:37 - CONCLUSION: 1. No evidence of inflow stenosis. 2. Mild arterial magna with severe calcific lower extremity disease bilaterally. Catheter angiography is recommended for further evaluation if clinically indicated. Tanmay Greenberg MD Assessment and Plan Assessment and Plan Ulcer R heel Continue santyl dressings daily as ordered R posterior heel Per ID, no continued antibiotics needed. Ok with d/c home with dressing changes to R heel. Patient already has outpatient follow up scheduled. Will monitor closely. Ok with patient receiving IV abx at Dialysis. Vascular eval shows there is adequate flow to ankle area, but decreased flow below ankle to foot and nothing to reconstruct at this time. Continue offloading R heel at all times. Cal Alfonso DPM July 02, 2016 12:58
[2016-07-02] MEDS ORDERED: COLL30T TOPICAL (14:26)
--- NOTE | 2016-07-02 14:31 | HHI.FF ---
Face to Face Verification Diagnosis: (1) Heel ulcer (2) ESRD (end stage renal disease) on dialysis (3) History of lung cancer (4) DM (diabetes mellitus) (5) Hypothyroid (6) CAD (coronary artery disease) Home Health Nursing Order: Wound care and dressing changes Instructions: R posterior heel daily dressing: apply santyl ointment, followed by adhesive bordered gauze dressing. Offloading R heel with 2 pillows at all times to reduce pressure. I have seen patient Nadege Delgadillo on 07/02/16. My clinical findings support the need for the requested home health care services because: Limited ability to care for self I certify that my clinical findings support that this patient is homebound because: Unsteady gait/balance Vielka Wylie July 02, 2016 14:31 Jai Veras MD July 02, 2016 14:36
[2016-07-02 15:32] VITALS: O2SAT 95
[2016-07-02 16:00] VITALS: BP 115/64; PULSE 70; RESP 17; TEMP 97.3; O2SAT 100
[2016-07-02] MEDS ORDERED: WARFARIN SOD 6 MG TAB PO SCH (16:00)
[2016-07-03] MEDS ORDERED: COLLAGENASE OINT 30 GM TUBE TOPICAL SCH (09:00)
== END 2016-07-02 18:05 | disposition home health service (06) | DRG 592 ==
LOC: NEPC 13:37 → NEDA 15:54 → N07A 19:10
PROVIDERS: ADMIT Hospitalist; ATTEND Hospitalist
DX: L97.411 Non-pressure chronic ulcer of right heel and midfoot limited to breakdown of skin (principal); N18.6 End stage renal disease; E11.22 Type 2 diabetes mellitus with diabetic chronic kidney disease; I12.0 Hypertensive chronic kidney disease with stage 5 chronic kidney disease or end stage renal disease; E03.9 Hypothyroidism, unspecified; I25.10 Atherosclerotic heart disease of native coronary artery without angina pectoris; R79.1 Abnormal coagulation profile; Z79.01 Long term (current) use of anticoagulants; Z95.5 Presence of coronary angioplasty implant and graft; Z95.1 Presence of aortocoronary bypass graft; Z87.891 Personal history of nicotine dependence; Z85.118 Personal history of other malignant neoplasm of bronchus and lung; Z86.718 Personal history of other venous thrombosis and embolism; Z99.2 Dependence on renal dialysis; Z79.84 Long term (current) use of oral hypoglycemic drugs
CPT/HCPCS: 75635; 80048; 80053; 82607; 85025; 85610; 85652; 85730; 86140; 86403; 87070; 87147; 87186; 87205; 90935; 93005; 96365; 96374; J2543; Q4081; Q9967

== ENCOUNTER 2016-09-11 09:03 | Observation (INO) | payer MEDICARE ==
[2016-09-11] VITALS (8 sets, daily range): BP systolic 95–167; BP diastolic 50–66; PULSE 77–91; RESP 16–22; TEMP 97.5; O2SAT 96–100
[~2016-09-11] VITALS: Ht 168.9 cm; Wt 90.0 kg
[~2016-09-11 09:03] MED LIST changes: +ALEN35TA24 PO; -AMLO2.5T PO; +CALC667C PO; -CALC667T PO; -CEPH500C PO; +COLL30T TOPICAL; -COUM4TAB7 PO; -GABA300C3 PO; +LEVO25TA4 PO; +NORV2.5T PO; -RENAL PO; +TRAM50TA PO; +VITATAB11 PO; +WARF-23 PO; -[UNRECOGNIZED DRUG - CODE]
[2016-09-11] MEDS ORDERED: ceFAZolin 1,000 MG/NS 100 ML IV SCH ×2 (09:30)
[2016-09-11] MEDS ORDERED: POVIDONE IODINE 5% (ANTISEPSIS KIT) 4 APPLICATIONS EACH NARE PRN (09:45)
[2016-09-11] MEDS ORDERED: SODIUM CHLORID 0.9% 500 ML IV PRN (09:45)
[2016-09-11] MEDS ORDERED: INSULIN HUMAN REGULAR 1,000 UNITS/10 ML VIAL SQ PRN (09:45)
[2016-09-11] MEDS ORDERED: LACTATED RINGER'S 1000 ML IV PRN (09:45)
[2016-09-11] MEDS ORDERED: CHLORHEXIDINE GLUCONATE 2 % 1 PACK (2 CLOTHS) TOPICAL PRN (09:45)
[2016-09-11] MEDS ORDERED: METOPROLOL TARTRATE 25 MG TAB PO PRN (09:45)
[2016-09-11] MEDS ORDERED: WARF-60 PO (10:08)
[2016-09-11] MEDS ORDERED: GABA300C5 PO (10:08)
[2016-09-11] MEDS ORDERED: MIDO5TAB PO (10:08)
[2016-09-11] MEDS ORDERED: B-CO1CAP9 PO (10:08)
[2016-09-11] MEDS ORDERED: HEPARIN SODIUM - IV 10,000 UNITS/10 ML VIAL ONE (10:22)
[2016-09-11] MEDS ORDERED: HEPARIN SODIUM - SQ 10,000 UNITS/ML VIAL ONE (10:23)
[2016-09-11] MEDS ORDERED: PROTAMINE SULFATE 50 MG/5 ML VIAL ONE (10:23)
[2016-09-11] MEDS ORDERED: MIDAZOLAM HCL 2 MG/2 ML VIAL ONE (11:08)
[2016-09-11] MEDS ORDERED: DEXAMETHASONE SOD PHOS 4 MG/ML VIAL ONE (11:09)
[2016-09-11] MEDS ORDERED: FAMOTIDINE 20 MG/2 ML VIAL ONE (11:09)
--- NOTE | 2016-09-11 11:19 | EKG ---
Date Performed: 09/11/2016 Time Performed: 09:45:06 PTAGE: 81 years EKG: Sinus rhythm NONSPECIFIC T WAVE ABNORMALITY ABNORMAL ECG PREVIOUS TRACING : 07/01/2016 13.56 No change from previous tracing noted. DOCTOR: Dixon Taylor Interpretating Date/Time 09/11/2016 11:18:58
[2016-09-11] MEDS ORDERED: NITROGLYCERIN 1000 MCG/5 ML VIAL OTHER ONE ×2 (12:00)
[2016-09-11] MEDS ORDERED: NITROGLYCERIN IV FLUSH ONE (12:00)
[2016-09-11] MEDS ORDERED: PHENYLEPH/NS 1000 MCG/10 ML SYR IV ONE ×2 (12:00)
[2016-09-11] MEDS ORDERED: PROPOFOL 200 MG/20 ML AMP IV ONE ×2 (12:00)
[2016-09-11] MEDS ORDERED: SODIUM CHLORID 0.9% 500 ML INJ 500 ML IV ONE (12:00)
[2016-09-11] MEDS ORDERED: ePHEDrine/NS 25 MG/5 ML SYR IV ONE (12:00)
[2016-09-11] MEDS ORDERED: SODIUM CHLORIDE 0.9% FLUSH 10 ML FLUSH IV FLUSH ONE (12:00)
[2016-09-11] MEDS ORDERED: SODIUM CHLORIDE 0.9% IV FLUSH ONE (12:00)
[2016-09-11 12:07] LABS: AUTOMATED NEUTROPHIL # 2.5 TH/MM3 (1.8-7.7); BASOPHIL % 0.4 % (0.0-2.0); EOSINOPHIL # 0.3 TH/MM3 (0-0.4); HEMATOCRIT 24.4 % (35.0-46.0); HEMO FLAGS DIFF FINAL; LYMPH % 38.8 % (9.0-44.0); MEAN CELL VOLUME 104.7 FL (80.0-100.0); MEAN CORPUSCULAR HEMOGLOBIN 33.9 PG (27.0-34.0); MEAN CORPUSCULAR HGB CONC 32.4 % (32.0-36.0); MONO % 7.6 % (0.0-8.0); NEUT % 48.2 % (16.0-70.0); PLATELET COUNT 155 TH/MM3 (150-450); RED BLOOD COUNT 2.33 MIL/MM3 (4.00-5.30); RED CELL DISTRIBUTION WIDTH 15.1 % (11.6-17.2); WHITE BLOOD COUNT 5.2 TH/MM3 (4.0-11.0)
[2016-09-11 12:21] LABS: APTT (PATIENT) 28.7 SEC (24.3-30.1); INTERNATIONAL NORMALIZED RATIO 1.3 RATIO; PROTHROMBIN TIME - PATIENT 14.7 SEC (9.8-11.6)
[2016-09-11 13:07] LABS: BICARBONATE 20.3 MEQ/L (21.0-32.0); POTASSIUM 3.3 MEQ/L (3.5-5.1)
[2016-09-11] MEDS ORDERED: BUPIVACAINE/EPINEPHRINE 0.25% 50 ML VIAL INFIL ONE (14:33)
[2016-09-11] MEDS ORDERED: IOHEXOL 300 MG/ML 50 ML BTL (for RAD DIAG) ONE (14:33)
[2016-09-11] MEDS ORDERED: ceFAZolin INJ 1,000 MG VIAL IV ONE (16:00)
[2016-09-11] MEDS ORDERED: CALCIUM ACETATE 667 MG CAP PO PRN (17:30)
[2016-09-11] MEDS ORDERED: traMADol HCL 50 MG TAB PO PRN (17:30)
[2016-09-11] MEDS ORDERED: DO NOT ADM ANY ANTICOAGULANT DRUGS PRN (17:30)
[2016-09-11] MEDS ORDERED: SODIUM CHLORIDE FLUSH PRN IV FLUSH (17:45)
[2016-09-11] MEDS ORDERED: LIDOCAINE HCL 1% 20 ML VIAL INFIL SCH (17:45)
[2016-09-11] MEDS ORDERED: SODIUM CHLOR 0.9% 1000 ML INJ 1,000 ML IV ONE (18:00)
[2016-09-11] MEDS ORDERED: ONDANSETRON HCL 4 MG/2 ML VIAL IV PUSH PRN (18:00)
[2016-09-11] MEDS ORDERED: METOCLOPRAMIDE HCL 10 MG/2 ML VIAL IV PRN (18:00)
[2016-09-11] MEDS ORDERED: SODIUM CHLOR 0.9% 250 ML INJ 250 ML IV PRN (18:00)
[2016-09-11] MEDS ORDERED: ATROPINE SULFATE 1 MG/10 ML SYRINGE IV PRN (18:00)
[2016-09-11] MEDS ORDERED: LORazepam 2 MG/ML VIAL IV PRN (18:00)
[2016-09-11] MEDS ORDERED: ACETAMINOPHEN/CODEINE 300 MG/30 MG TAB PO PRN (20:00)
[2016-09-11] MEDS ORDERED: LABETALOL HCL 100 MG/20 ML VIAL IV PRN (20:15)
[2016-09-11] MEDS ORDERED: POTASSIUM CHLORIDE 20 MEQ CONTROLLED RELEASE TAB PO SCH (20:15)
[2016-09-11] MEDS ORDERED: cloNIDine HCL 0.1 MG TAB PO PRN (20:15)
[2016-09-11] MEDS ORDERED: ENALAPRILAT 1.25 MG/ML VIAL IV PUSH PRN (20:15)
[2016-09-11] MEDS ORDERED: NITROPRUSSIDE 50 MG/D5W 250 ML IV PRN ×2 (20:15)
[2016-09-11] MEDS ORDERED: SODIUM CHLORIDE FLUSH BID IV FLUSH SCH (21:00)
[2016-09-11] MEDS ORDERED: GABAPENTIN 300 MG CAP PO SCH (21:00)
[2016-09-11] MEDS ORDERED: MIDODRINE 5 MG TAB PO ONE (21:15)
[2016-09-11 21:17] LABS: HEMATOCRIT 27.7 % (35.0-46.0); REVIEW FLAG FINAL
[2016-09-11] MEDS ORDERED: MISCELLANEOUS NURSING INFORMATION OTHER SCH (22:00)
[2016-09-11 22:35] LABS: HEMATOCRIT 27.9 % (35.0-46.0); REVIEW FLAG FINAL
[2016-09-11] MEDS ORDERED: LIDOCAINE 1%/EPINEPHrine 1:100,000 SOLN 20 ML VIAL ONE (22:48)
[2016-09-12] VITALS (8 sets, daily range): BP systolic 103–127; BP diastolic 51–58; PULSE 69–78; RESP 14–22; TEMP 98.6–98.7; O2SAT 96–99
[2016-09-12] MEDS ORDERED: ACETAMINOPHEN/CODEINE 300 MG/30 MG TAB PO PRN (00:45)
[2016-09-12] MEDS ORDERED: MIDODRINE 5 MG TAB PO PRN (00:45)
[2016-09-12] MEDS ORDERED: ACETAMINOPHEN/HYDROcodone 325 MG/5 MG TAB PO PRN (00:45)
[2016-09-12] MEDS ORDERED: MORPHINE SULFATE 4 MG/ML INJ IV PRN (00:45)
[2016-09-12] MEDS ORDERED: ONDANSETRON HCL 4 MG/2 ML VIAL IV PUSH PRN (00:45)
[2016-09-12 00:47] LABS: HEMATOCRIT 31.5 % (35.0-46.0); REVIEW FLAG FINAL
[2016-09-12] MEDS ORDERED: SODIUM CHLOR 0.9% 250 ML INJ 250 ML IV ONE (01:00)
[2016-09-12] MEDS ORDERED: HEPARIN SODIUM - SQ 10,000 UNITS/ML VIAL SQ SCH (06:00)
[2016-09-12] MEDS ORDERED: LEVOTHYROXINE SODIUM 25 MCG TAB PO SCH (06:00)
[2016-09-12 06:54] LABS: HEMATOCRIT 27.4 % (35.0-46.0); REVIEW FLAG FINAL
[2016-09-12] MEDS ORDERED: SODIUM CHLOR 0.9% 1000 ML INJ 1,000 ML IV PRN ×3 (08:42)
[2016-09-12] MEDS ORDERED: HEPARIN SODIUM - IV 10,000 UNITS/10 ML VIAL PRN (08:45)
[2016-09-12] MEDS ORDERED: cloNIDine HCL 0.1 MG TAB PO PRN (08:45)
[2016-09-12] MEDS ORDERED: GELATIN 12 MM/7 MM FOAM TOP PRN (08:45)
[2016-09-12] MEDS ORDERED: ACETAMINOPHEN 325 MG TAB PO PRN (08:45)
[2016-09-12] MEDS ORDERED: HEPARIN SODIUM - IV 10,000 UNITS/10 ML VIAL IVF PRN (08:45)
[2016-09-12] MEDS ORDERED: diphenhydrAMINE HCL 25 MG CAP PO PRN (08:45)
[2016-09-12] MEDS ORDERED: GENTAMICIN SULFATE (DIALYSIS USE ONLY) 20 MG/2 ML VIAL IV PRN (08:45)
[2016-09-12] MEDS ORDERED: ONDANSETRON HCL 4 MG/2 ML VIAL IV PRN (08:45)
[2016-09-12] MEDS ORDERED: EPOETIN ALFA 10,000 UNITS/ML VIAL IV PRN (08:45)
[2016-09-12] MEDS ORDERED: MANNITOL 12.5 GM/50 ML VIAL IV PRN (08:45)
[2016-09-12] MEDS ORDERED: NITROGLYCERIN 0.4 MG SL 25 TABS/BTL SL PRN (08:45)
[2016-09-12] MEDS ORDERED: SODIUM CHLORIDE 0.9% FLUSH 10 ML FLUSH IV FLUSH PRN (08:45)
[2016-09-12] MEDS ORDERED: CLOPIDOGREL 75 MG TAB PO SCH (09:00)
[2016-09-12] MEDS ORDERED: ALLOPURINOL 100 MG TAB PO SCH (09:00)
[2016-09-12] MEDS ORDERED: amLODIPine BESYLATE 5 MG TAB PO SCH (09:00)
[2016-09-12] MEDS ORDERED: VITAMIN B CMPLX/VITC/FOLIC AC CAP PO SCH (09:00)
[2016-09-12] MEDS ORDERED: ASPIRIN EC 81 MG TABEC PO SCH (09:00)
[2016-09-12] MEDS: ALBUMIN HUMAN 25% 25 GM/100 ML BAGP IV PRN (09:25)
[2016-09-12] MEDS ORDERED: BISACODYL EC 5 MG TABEC PO ONE (10:30)
[2016-09-12] MEDS ORDERED: BISACODYL 10 MG SUPP RECTAL ONE (10:30)
--- NOTE | 2016-09-12 13:25 | PD.CONS ---
HPI Service Nephrology Consult Requested By Dr. Woodson Reason for Consult ESRD management Primary Care Physician Tereza Mary M.D. History of Present Illness Patient is a 81-year-old white female with history of end-stage renal disease, diabetes, hypertension, and peripheral vascular disease with right foot pain and required right femoral artery exploration surgery she underwent the procedure yesterday. 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 Midodrine 5 Mg Tab 5 Mg PO DIRECTED Gabapentin 300 Mg Cap 300 Mg PO HS Warfarin 6 Mg Tab 7 Mg PO DAILY Calcium Acetate (Calcium Acetate (Phosphate Bin) 667 Mg Cap 667 Tab PO TID PRN Norvasc (Amlodipine Besylate) 2.5 Mg Tab 2.5 Mg PO DAILY Vitamin B Complex (B-Complex Vitamins) 1 Tab 1 Tab PO DAILY Allopurinol 100 Mg Tab 100 Mg PO DAILY Tramadol (Tramadol HCl) 50 Mg Tab 50 Mg PO Q6H PRN Levothyroxine (Levothyroxine Sodium) 25 Mcg Tab 25 Mcg PO DAILY Alendronate (Alendronate Sodium) 35 Mg Tab 35 Mg PO Q7D Active Ordered Medications Current Medications Medications (Trade) Dose Ordered Sig/[place] Route Start Time Stop Time Status Last Admin Miscellaneous Information ALL NURSING DEPARTME... UNSCH PRN .XX 09/11/16 17:30 09/12/16 17:29 (Synthroid) 25 mcg DAILY@06 PO 09/12/16 06:00 (Ultram) 50 mg Q6H PRN PO 09/11/16 17:30 (Zyloprim) 100 mg DAILY PO 09/12/16 09:00 (Norvasc) 2.5 mg DAILY PO 09/12/16 09:00 (Phoslo) 667 mg TID PRN PO 09/11/16 17:30 (Neurontin) 300 mg HS PO 09/11/16 21:00 (Nephrocaps) 1 cap DAILY PO 09/12/16 09:00 (NS Flush) 2 ml BID IV FLUSH 09/11/16 21:00 (NS Flush) 2 ml UNSCH PRN IV FLUSH 09/11/16 17:45 (Reglan Inj) 5 mg Q4H PRN IV 09/11/16 18:00 (Ecotrin Ec) 81 mg DAILY PO 09/12/16 09:00 (Plavix) 75 mg DAILY PO 09/12/16 09:00 Labetalol HCl 2.5 mg 2.5 mg UNSCH PRN IV 09/11/16 20:15 (Nipride Inj/D5W Inj) 250 ml @ 0 mls/hr TITRATE PRN IV 09/11/16 20:15 (Catapres) 0.1 mg UNSCH PRN PO 09/11/16 20:15 Miscellaneous Information HOLD GLUCOPHAGE,GLUCOPHAGE XR AND... Q8HR OTHER 09/11/16 22:00 09/13/16 21:59 (Heparin Inj) 5,000 units BID@06,18 SQ 09/12/16 06:00 (Zofran Inj) 4 mg Q6H PRN IV PUSH 09/12/16 00:45 (Douglas 5-325 Mg) 1 tab Q4H PRN PO 09/12/16 00:45 (Morphine Inj) 2 mg Q4H PRN IV 09/12/16 00:45 (Tylenol-Codeine #3) 2 tab Q4H PRN PO 09/12/16 00:45 Midodrine 5 mg 5 mg UNSCH PRN PO 09/12/16 00:45 09/12/16 09:17 (NS 1000 ml Inj) 1,000 ml @ 0 mls/hr Q0M PRN IV 09/12/16 08:42 09/12/16 09:24 Heparin Sodium (Porcine) 8000 units 8,000 units UNSCH PRN IVF 09/12/16 08:45 Sodium Chloride 1,000 ml @ 200 mls/hr Q5H PRN IV 09/12/16 08:42 (NS 1000 ml Inj) 1,000 ml @ 0 mls/hr Q0M PRN IV 09/12/16 08:42 (Mannitol Inj) 12.5 gm UNSCH PRN IV 09/12/16 08:45 (Albumin 25% Inj) 25 gm UNSCH PRN IV 09/12/16 08:45 09/12/16 09:25 (NS Flush) 5 ml UNSCH PRN IV FLUSH 09/12/16 08:45 (Heparin Inj) UNSCH PRN .XX 09/12/16 08:45 (Gentamicin (Dialysis) Inj) 20 mg UNSCH PRN IV 09/12/16 08:45 (Zofran Inj) 4 mg UNSCH PRN IV 09/12/16 08:45 (Tylenol) 650 mg UNSCH PRN PO 09/12/16 08:45 (Benadryl) 25 mg UNSCH PRN PO 09/12/16 08:45 (Nitrostat Sl) 0.4 mg UNSCH PRN SL 09/12/16 08:45 (Catapres) 0.1 mg UNSCH PRN PO 09/12/16 08:45 (Epogen Inj) 10,000 units UNSCH PRN IV 09/12/16 08:45 09/12/16 09:25 (Gelfoam 12 Mm/7 Mm Top) 1 foam UNSCH PRN TOP 09/12/16 08:45 Family History Noncontributory Social History Denies current smoking or alcohol use Physical Exam Vital Signs Vital Signs Date Time Temp Pulse Resp B/P Pulse Ox O2 Delivery O2 Flow Rate FiO2 09/12/16 09:12 99 21 09/12/16 08:00 98.7 69 14 127/58 98 09/12/16 06:00 70 09/12/16 04:00 98.6 72 22 107/57 97 09/12/16 04:00 73 09/12/16 02:00 71 09/12/16 01:15 98.7 78 15 103/51 96 09/12/16 01:15 74 09/12/16 00:45 97.5 81 12 97/55 99 09/12/16 00:30 79 12 91/52 99 09/12/16 00:15 79 10 81/47 99 09/12/16 00:00 97.9 79 11 106/55 99 Nasal Cannula 2 09/11/16 22:00 81 16 104/56 100 09/11/16 22:00 81 09/11/16 21:00 77 09/11/16 20:00 89 09/11/16 20:00 97.5 88 16 95/50 100 09/11/16 19:00 89 09/11/16 18:40 91 16 113/60 96 09/11/16 18:30 89 09/11/16 18:15 87 16 138/65 96 09/11/16 17:45 98.1 87 20 125/60 92 Room Air 09/11/16 17:30 85 20 121/62 92 Room Air 09/11/16 17:15 85 20 123/59 95 Room Air 09/11/16 17:00 85 20 117/56 94 Room Air 09/11/16 16:45 85 20 119/58 93 Room Air 09/11/16 16:30 98.1 85 20 139/62 100 Room Air Physical Exam GENERAL: Well-nourished, well-developed patient. SKIN: Warm and dry. HEAD: Normocephalic. EYES: No scleral icterus. No injection or drainage. NECK: Supple, trachea midline. No JVD or lymphadenopathy. CARDIOVASCULAR: Regular rate and rhythm without murmurs, gallops, or rubs. RESPIRATORY: Breath sounds equal bilaterally. No accessory muscle use. GASTROINTESTINAL: Abdomen soft, non-tender, nondistended. EXTREMITIES: No cyanosis, 1+ edema. NEUROLOGICAL: Awake, alert, and oriented x 3. Non-focal. Laboratory Laboratory Tests Test 09/11/16 09/11/16 09/11/16 09/12/16 20:55 21:34 22:25 00:35 Hemoglobin 9.2 9.3 10.0 Hematocrit 27.7 27.9 31.5 Blood Type A POSITIVE A POSITIVE Crossmatch Leukocyte-Reduced Red Blood Cells Blood Bank Comment Test 09/12/16 06:08 Hemoglobin 8.9 Hematocrit 27.4 Result Diagram: 09/12/16 0608 09/11/16 1140 Assessment and Plan Problem List: (1) ESRD (end stage renal disease) on dialysis Plan: Patient had her hemodialysis early 2 L of ultrafiltration on 4K no issues noted she can be discharged to follow-up as an outpatient (2) Heel ulcer Plan: Status post the right femoral artery exploration (3) DM (diabetes mellitus) Plan: Continue to monitor Obdulia Washburn MD Sep 12, 2016 13:25
--- NOTE | 2016-09-16 11:29 | MP ---
cc: NOELLE WOODSON DATE OF SURGERY: 09/11/2016 PREOPERATIVE DIAGNOSIS Suspected retroperitoneal bleeding related to right femoral access sheath. POSTOPERATIVE DIAGNOSIS Suspected retroperitoneal bleeding related to right femoral access sheath. OPERATIVE PROCEDURE Exploration right femoral artery access site. SURGEON Noelle Woodson. ANESTHESIA Local MAC. DESCRIPTION OF OPERATIVE PROCEDURE With the patient in the supine position and under IV sedation the right groin and thigh were prepped with Betadine and draped in a sterile fashion. Skin and subcutaneous tissue surrounding the right femoral access sheath was infiltrated with 1% Xylocaine with epinephrine. A transverse 4 cm incision was performed. Dissection was continued sharply along the subcutaneous course of the 6-Nauruan hemostatic sheath. The distal external iliac, profunda and superficial femoral arteries were circumferentially mobilized and encircled with vessel loops. The access site was hemostatic. No significant hemorrhage from the sheath access site or within the retroperitoneal area was found. The sheath was removed and the sheath puncture site secured with a single interrupted suture of 6-0 Prolene. Strict hemostasis was assured. The incision was closed with continuous subcutaneous 4-0 Monocryl, continuous subcuticular 5-0 Monocryl, reinforced with Steri-Strips and covered with sterile gauze. Instrument, needle and sponge count were correct x2. There were no operative complications. The patient returned to the recovery room in stable condition having tolerated the procedure well. Noelle Woodson MD JTS/ADAM /8:19 AM /11:29 AM
--- NOTE | 2016-09-16 11:33 | MP ---
cc: NOELLE WOODSON DATE OF SURGERY September 11, 2016 PREOPERATIVE DIAGNOSIS Nonhealing ischemic neurotrophic ulcer right heel. POSTOPERATIVE DIAGNOSIS Nonhealing ischemic neurotrophic ulcer right heel. PROCEDURE Right popliteal, anterior tibial orbital atherectomy/PTBA. SURGEON Noelle Woodson MD RAND SEWER KEN Cooper ANESTHESIA Local MAC. DESCRIPTION OF THE OPERATIVE PROCEDURE With the patient in the supine position and under IV sedation, the lower abdomen, both groins and thighs were prepped with Betadine and draped in a sterile fashion. Following a protocol time-out, the skin and subcutaneous tissues surrounding the proposed right common femoral access site preemptively infiltrated with 0.5% Marcaine with epinephrine. Utilizing ultrasound guidance, an 18-gauge needle was inserted into the right mid-common femoral lumen and a J-wire advanced under fluoroscopic guidance into the proximal superficial femoral artery. A 5-Finnish hemostatic sheath was deployed over the J-wire. Diluted contrast was injected through the sheath side-arm in conjunction with digital C-arm fluoroscopic imaging with findings as follows: Visualization of the popliteal was obscured by the prosthetic total knee joint. Oblique views with 90 degree flexion of the right knee joint provided adequate visualization which disclosed complete occlusion of the above and below-knee popliteal. Collaterals reconstituted the popliteal below the knee joint level. Significant disease extended into the proximal anterior tibial. The origins of the tibioperoneal trunk, proximal peroneal and posterior tibial arteries were completely occluded. The anterior tibial provided single vessel runoff to the right foot. The 5-Finnish sheath was exchanged for a 6-Finnish sheath over an Advantage guidewire. An Advantage guidewire Quick-Cross catheter combination was navigated intraluminally across the popliteal occlusion and into the distal anterior tibial. The Advantage guidewire was exchanged for a Vicryl wire which was parked within the distal anterior tibial. Orbital atherectomy of the popliteal occlusion and anterior tibial stenosis was accomplished with a CSI 1.5 solid Elfrida spun at 60, 90 and 140,000 RPMs, followed by balloon dilatation with a 2.5 x 3 plain angioplasty balloon followed by a 4 x 80-mm drug-coated balloon inflated across the popliteal occlusion. Completion angiogram revealed wide patency of the popliteal and anterior tibial with no significant residual stenotic disease. In addition, collateralization of the distal posterior tibial and peroneal suggested markedly improved distal perfusion. It should be noted that after placement of the 6-Finnish sheath, the patient was systemically heparinized with 5000 units and ACT measured in 300s. Postprocedure the heparin was not reversed. The 6-Finnish sheath was secured with a skin suture and sterile dressing applied. At the completion of the procedure Doppler flow was robust, biphasic within the distal anterior tibial, dorsalis pedis. The patient returned to the recovery room in stable condition having tolerated the procedure well. Noelle Woodson MD JBRENDAN/SSB /8:13 AM /11:27 AM
== END 2016-09-12 13:30 | disposition home or self-care (01) ==
LOC: HCVO 09:03 → HCIN 18:33 → HSDC 09-12 01:02 → N03B 09-12 01:03 → UNDOADMIN 09-12 01:03 → N03B 09-12 01:03 → UNDODISIN 09-12 13:30
PROVIDERS: ADMIT Surgery Vascular Surgery; ATTEND Surgery Vascular Surgery
DX: E11.621 Type 2 diabetes mellitus with foot ulcer (principal); L97.419 Non-pressure chronic ulcer of right heel and midfoot with unspecified severity; I25.10 Atherosclerotic heart disease of native coronary artery without angina pectoris; I70.219 Atherosclerosis of native arteries of extremities with intermittent claudication, unspecified extremity; I13.2 Hypertensive heart and chronic kidney disease with heart failure and with stage 5 chronic kidney disease, or end stage renal disease; I25.2 Old myocardial infarction; I50.9 Heart failure, unspecified; N18.6 End stage renal disease; D63.1 Anemia in chronic kidney disease; E78.5 Hyperlipidemia, unspecified; E03.9 Hypothyroidism, unspecified; G62.9 Polyneuropathy, unspecified; E66.9 Obesity, unspecified; Z87.891 Personal history of nicotine dependence; Z95.5 Presence of coronary angioplasty implant and graft; Z99.2 Dependence on renal dialysis
CPT/HCPCS: 00840; 01440; 37227; 37229; 75710; 76937; 80048; 85014; 85018; 85025; 85347; 85610; 85730; 86850; 86900; 86901; 86920; 90935; 93005; 96374; 96375; C1725; C1769; C2623; G0378; J0690; J1100; J1644; J2250; J2370; J2720; J3010; J7030; J7040; P9047; Q4081; Q9967

== ENCOUNTER 2016-09-30 12:43 | Day surgery (SDC) | payer MEDICARE ==
[~2016-09-30 12:43] MED LIST changes: +B-CO1CAP9 PO; -COLL30T TOPICAL; +GABA300C5 PO; +MIDO5TAB PO; -WARF-23 PO; +WARF-60 PO
[2016-09-30 13:03] VITALS: BP 116/59; PULSE 104; RESP 18; TEMP 98; O2SAT 95
[2016-09-30] MEDS ORDERED: VITA1000 PO (13:07)
[2016-09-30] MEDS ORDERED: VANCOMYCIN 1,000 MG/NS 250 ML IV ONE ×2 (14:00)
--- NOTE | 2016-09-30 15:57 | PD.RAD ---
Post Procedure Progress Note Pre Procedure Diagnosis: (1) ESRD (end stage renal disease) on dialysis (2) Heel ulcer (3) Cellulitis Post Procedure Diagnosis: (1) ESRD (end stage renal disease) on dialysis (2) Heel ulcer (3) Cellulitis Procedure Date: Sep 30, 2016 Supervising Radiologist: Vivek Franks Proceduralist/Assist: Liz Schroeder RT(R), RT Raheem(R)() Anesthesia: Local Plan of Activity Patient to Unit: ROPU Patient Condition: Good Additional Comments: Placed left IJ tunneled PICC line See PACS Report for procedural detail/treatment Vivek Franks MD Sep 30, 2016 15:57
[2016-09-30] MEDS ORDERED: SODIUM CHLORIDE 0.9% FLUSH 10 ML FLUSH IVF PRN ×2 (16:00)
[2016-09-30 16:21] VITALS: BP 112/53; PULSE 62; RESP 20; TEMP 98; O2SAT 95
[2016-09-30 16:49] VITALS: BP 112/58; PULSE 62; RESP 20; O2SAT 96
[2016-10-01] MEDS ORDERED: SODIUM CHLORIDE 0.9% FLUSH 10 ML FLUSH IVF SCH (09:00)
--- NOTE | 2016-10-01 09:49 | RADRPT ---
[facility] COMPARISON: No previous studies available for comparison. INDICATIONS : Patient is in need of placement of a PICC line for medication administration. MEDICAL HISTORY : History of lung cancer, CAD, PVD, ID, COPD, ESRD, HTN, DM, heel ulcer, HLD. SURGICAL HISTORY : History of CABG, right lobectomy, right arm AV graft, cardiac stent, cholecystectomy, hysterectomy. ENCOUNTER: Initial ACUITY: 1 day PAIN SCORE: 0/10 FLUORO TIME: 0.9 minutes IMAGE SERIES: 0 ACCESS: Left internal jugular vein DEVICE(S): 1.) 4 Upper Sor[place] single lumen 26 cm Xcela Power PICC PROCEDURE : 1. Ultrasound guidance for venous catheterization. 2. Fluoroscopic guidance. 3. Ultrasound & fluoroscopic guided central venous Power PICC line placement. The risks, benefits and alternatives to the procedure were explained and verbal and written consent w as obtained. The site was prepped in sterile fashion. Full sterile technique was used, including ca p, mask, sterile gloves and gown and a large sterile sheet. Hand hygiene and 2% chlorhexidine prep w as utilized per protocol for cutaneous antisepsis with appropriate dry time for site. The skin and s ubcutaneous tissues were infiltrated with local anesthetic solution. Patient is a dialysis patient. Therefore, IJ PICC line was placed. Patient has a working right upper extremity fistula. Ultrasound evaluation of the right neck demonstrated the right IJ to be occluded. Therefore, left IJ access was utilized. Under direct ultrasound guidance, a suitable vein was accesse d and a measuring guidewire was introduced and positioned in the central venous system. The catheter was tunneled for approximately 5 cm in the left anterior chest wall. The ultrasound images depicting access guidance were saved and stored to PACS for permanent record. A Power Injectable PICC line was cut to prescribed length and introduced, positioned with tip at the cavoatrial junction level. The line was flushed and secured per protocol. CONCLUSION: 1. Uncomplicated central venous tunneled Power PICC line placement via left internal jugular approac h. 2. The PICC line can be used immediately. Vivek Franks MD on October 01, 2016 at 9:45 Board Certified Radiologist. This report was verified electronically.
--- NOTE | 2016-10-01 10:03 | RADRPT ---
EXAM DATE/TIME: 09/30/2016 15:10 [facility] COMPARISON: No previous studies available for comparison. INDICATIONS : Patient is in need of placement of a PICC line for medication administration. MEDICAL HISTORY : History of lung cancer, CAD, PVD, ND, COPD, ESRD, HTN, DM, heel ulcer, HLD. SURGICAL HISTORY : History of CABG, right lobectomy, right arm AV graft, cardiac stent, cholecystectomy, hysterectomy. ENCOUNTER: Initial ACUITY: 1 day PAIN SCORE: 0/10 FLUORO TIME: 0.9 minutes IMAGE SERIES: 0 ACCESS: Left internal jugular vein DEVICE(S): 1.) 4 Vietnamese single lumen 26 cm Xcela Power PICC PROCEDURE : 1. Ultrasound guidance for venous catheterization. 2. Fluoroscopic guidance. 3. Ultrasound & fluoroscopic guided central venous Power PICC line placement. The risks, benefits and alternatives to the procedure were explained and verbal and written consent w as obtained. The site was prepped in sterile fashion. Full sterile technique was used, including ca p, mask, sterile gloves and gown and a large sterile sheet. Hand hygiene and 2% chlorhexidine prep w as utilized per protocol for cutaneous antisepsis with appropriate dry time for site. The skin and s ubcutaneous tissues were infiltrated with local anesthetic solution. Patient is a dialysis patient. Therefore, IJ PICC line was placed. Patient has a working right upper extremity fistula. Ultrasound evaluation of the right neck demonstrated the right IJ to be occluded. Therefore, left IJ access was utilized. Under direct ultrasound guidance, a suitable vein was accesse d and a measuring guidewire was introduced and positioned in the central venous system. The catheter was tunneled for approximately 5 cm in the left anterior chest wall. The ultrasound images depicting access guidance were saved and stored to PACS for permanent record. A Power Injectable PICC line was cut to prescribed length and introduced, positioned with tip at the cavoatrial junction level. The line was flushed and secured per protocol. CONCLUSION: 1. Uncomplicated central venous tunneled Power PICC line placement via left internal jugular approac h. 2. The PICC line can be used immediately. Vivek Franks MD on October 01, 2016 at 9:45 Board Certified Radiologist. This report was verified electronically.
== END 2016-09-30 17:20 | disposition home or self-care (01) ==
LOC: HROP 12:43 → HRIP 12:47 → HROP 17:20
PROVIDERS: ATTEND Surgery Vascular Surgery
DX: I12.0 Hypertensive chronic kidney disease with stage 5 chronic kidney disease or end stage renal disease (principal); N18.6 End stage renal disease; L97.409 Non-pressure chronic ulcer of unspecified heel and midfoot with unspecified severity; L03.90 Cellulitis, unspecified; I25.10 Atherosclerotic heart disease of native coronary artery without angina pectoris; E78.5 Hyperlipidemia, unspecified; I25.2 Old myocardial infarction; E11.22 Type 2 diabetes mellitus with diabetic chronic kidney disease; E11.51 Type 2 diabetes mellitus with diabetic peripheral angiopathy without gangrene; I73.9 Peripheral vascular disease, unspecified; J44.9 Chronic obstructive pulmonary disease, unspecified; Z95.1 Presence of aortocoronary bypass graft; Z95.5 Presence of coronary angioplasty implant and graft; Z85.118 Personal history of other malignant neoplasm of bronchus and lung
CPT/HCPCS: 36558; 76937; 77001; C1751; J1642; J3370; J7050; 96365

== ENCOUNTER 2017-01-07 23:10 | Emergency (ER) | payer MEDICARE ==
[~2017-01-07] VITALS: Ht 167.6 cm; Wt 84.0 kg
[~2017-01-07 23:10] MED LIST changes: +VITA1000 PO
[2017-01-07 23:21] VITALS: BP 195/81; PULSE 71; RESP 16; TEMP 99.2; O2SAT 95
--- NOTE | 2017-01-07 23:42 | PD ---
HPI Chief Complaint: General Weakness Time Seen by Provider: 23:20 Travel History International Travel<30 days: No Contact w/Intl Traveler<30days: No Traveled to known affect area: No History of Present Illness HPI PATIENT IS A ESRD PATIENT ON / SCHEDULE. PATIENT COMES WITH ONE DAY HISTORY OF GEN WEAKNESS, DENIES FEVER/COUGH/URI/CP/ABD PAIN/N/V/D/....DENIES ALLEVIATING / AGGRAVATING FACTORS. PCP DR NI PMHX: ESRD, DM, ACS, HEEL ULCER (EVALUATED BY DR JUSTIN 2 DAYS AGO IN CLINIC) PFSH Past Medical History Cancer: Yes (RIGHT LUNG) Cardiovascular Problems: Yes (CABG 2013) High Cholesterol: Yes Chemotherapy: No COPD: Yes Diabetes: Yes Patient Takes Glucophage: No Dialysis: Yes () Diminished Hearing: No Endocrine: No Gastrointestinal Disorders: No Glaucoma: No Genitourinary: Yes Hepatitis: No Hiatal Hernia: No Hypertension: Yes Immune Disorder: No Medical other: No Musculoskeletal: No Neurologic: No Psychiatric: No Reproductive: No Respiratory: Yes (HX LUNG CANCER (RLL)) Immunizations Current: Yes Radiation Therapy: No Renal Failure: Yes (dialysis) Thyroid Disease: Yes Tetanus Vaccination: < 5 Years Influenza Vaccination: Yes Menopausal: Yes Past Surgical History Abdominal Surgery: Yes (CHOLECYSTECTOMY, APPY) AICD: No Body Medical Devices: PINS TO RIGHT HIP, SPINAL CORD STIMULATOR Cardiac Surgery: Yes (CARDIAC STENT) Ear Surgery: No Endocrine Surgery: No Eye Surgery: Yes (ISAÍAS CATARACTS) Genitourinary Surgery: No Gynecologic Surgery: Yes (HYSTERECTOMY) Joint Replacement: Yes (L PATRICK, R TKA) Neurologic Surgery: No Pacemaker: No Thoracic Surgery: Yes (RIGHT LOWER LOBECTOMY) Other Surgery: Yes (vascular surgery- dialysis shunt in right upper arm) Social History Alcohol Use: No Tobacco Use: No (quit smoking 30 years ago) Substance Use: No Allergies-Medications (Allergen,Severity, Reaction): Coded Allergies: codeine (Unverified Allergy, Severe, Confusion, 01/07/17) metformin (Unverified Allergy, Severe, swelling, 01/07/17) SWELLING IN FACE lovastatin (Unverified Allergy, Unknown, rash, 01/07/17) amlodipine (Unverified Adverse Reaction, Mild, weakness, 01/07/17) atorvastatin (Unverified Adverse Reaction, Mild, weakness, 01/07/17) pravastatin (Unverified Adverse Reaction, Mild, weakness, 01/07/17) simvastatin (Unverified Adverse Reaction, Mild, weakness, 01/07/17) *MDRO Multi-Drug Resistant Organism (Verified Adverse Reaction, Unknown, 01/07/17) 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 Midodrine 5 Mg Tab 5 Mg PO DIRECTED Gabapentin 300 Mg Cap 300 Mg PO HS Warfarin 6 Mg Tab 7 Mg PO DAILY Calcium Acetate (Calcium Acetate (Phosphate Bin) 667 Mg Cap 667 Tab PO TID PRN Norvasc (Amlodipine Besylate) 2.5 Mg Tab 2.5 Mg PO DAILY Vitamin B Complex (B-Complex Vitamins) 1 Tab 1 Tab PO DAILY Allopurinol 100 Mg Tab 100 Mg PO DAILY Tramadol (Tramadol HCl) 50 Mg Tab 50 Mg PO Q6H PRN Levothyroxine (Levothyroxine Sodium) 25 Mcg Tab 25 Mcg PO DAILY Alendronate (Alendronate Sodium) 35 Mg Tab 35 Mg PO Q7D Review of Systems Except as stated in HPI: all other systems reviewed are Neg General / Constitutional: No: Fever Eyes: No: Visual changes HENT: No: Headaches Cardiovascular: No: Chest Pain or Discomfort Respiratory: No: Shortness of Breath Gastrointestinal: No: Abdominal Pain Genitourinary: No: Dysuria Musculoskeletal: No: Pain Skin: No Rash Neurologic: Positive: Weakness (GENERALIZED) Psychiatric: No: Depression Endocrine: No: Polydipsia Hematologic/Lymphatic: No: Easy Bruising Physical Exam Narrative GENERAL: SKIN: Warm and dry. HEAD: Atraumatic. Normocephalic. EYES: Pupils equal and round. No scleral icterus. No injection or drainage. ENT: No nasal bleeding or discharge. Mucous membranes pink and moist. NECK: Trachea midline. No JVD. CARDIOVASCULAR: Regular rate and rhythm. RESPIRATORY: No accessory muscle use. Clear to auscultation. Breath sounds equal bilaterally. GASTROINTESTINAL: Abdomen soft, non-tender, nondistended. MUSCULOSKELETAL: Extremities without clubbing, cyanosis, or edema. No obvious deformities. NEUROLOGICAL: Awake and alert. No obvious cranial nerve deficits. Motor grossly within normal limits. Five out of 5 muscle strength in the arms and legs. Normal speech. PSYCHIATRIC: Appropriate mood and affect; insight and judgment normal. Data Data Last Documented VS Vital Signs Date Time Temp Pulse Resp B/P (MAP) Pulse Ox O2 Delivery O2 Flow Rate FiO2 01/08/17 00:45 76 18 96 Room Air 01/07/17 23:21 99.2 195/81 (119) Orders Orders Electrocardiogram (01/07/17 23:21) Complete Blood Count With Diff (01/07/17 23:21) Basic Metabolic Panel (Bmp) (01/07/17 23:) Troponin I (01/07/17:) Prothrombin Time / Inr (Pt) (01/07/17 23:21) Lipase (01/07/17 23:21) Thyroid Stimulating Hormone (01/07/17:) Influenzae A/B Antigen (01/07/17 23:21) Chest, Single Ap (01/07/17 23:21) Iv Access Insert/Monitor (01/07/17 23:21) Ecg Monitoring (01/07/17 23:21) Oximetry (01/07/17 23:21) Labs Laboratory Tests Test 01/08/17 00:10 White Blood Count 7.6 TH/MM3 Red Blood Count 3.25 MIL/MM3 Hemoglobin 10.1 GM/DL Hematocrit 30.7 % Mean Corpuscular Volume 94.2 FL Mean Corpuscular Hemoglobin 30.9 PG Mean Corpuscular Hemoglobin Concent 32.8 % Red Cell Distribution Width 19.3 % Platelet Count 225 TH/MM3 Mean Platelet Volume 7.4 FL Neutrophils (%) (Auto) 73.2 % Lymphocytes (%) (Auto) 17.4 % Monocytes (%) (Auto) 5.8 % Eosinophils (%) (Auto) 2.6 % Basophils (%) (Auto) 1.0 % Neutrophils # (Auto) 5.6 TH/MM3 Lymphocytes # (Auto) 1.3 TH/MM3 Monocytes # (Auto) 0.4 TH/MM3 Eosinophils # (Auto) 0.2 TH/MM3 Basophils # (Auto) 0.1 TH/MM3 CBC Comment DIFF FINAL Differential Comment Prothrombin Time 10.5 SEC Prothromb Time International Ratio 1.0 RATIO Blood Urea Nitrogen 22 MG/DL Creatinine 3.82 MG/DL Random Glucose 108 MG/DL Calcium Level 9.2 MG/DL Sodium Level 136 MEQ/L Potassium Level 5.1 MEQ/L Chloride Level 104 MEQ/L Carbon Dioxide Level 26.9 MEQ/L Anion Gap 5 MEQ/L Estimat Glomerular Filtration Rate 11 ML/MIN Troponin I LESS THAN 0.02 NG/ML Lipase 84 U/L Thyroid Stimulating Hormone 3rd Gen 1.230 uIU/ML MDM Medical Decision Making Medical Screen Exam Complete: Yes Emergency Medical Condition: Yes Medical Record Reviewed: Yes Interpretation(s) NSR, 75, IRBBB, NO STEMI PATTERN, Differential Diagnosis PNA V HYPOTHYROID V ELECTROLYTE ABNL V ANEMIA Narrative Course NEG TROPONIN, MILD ANEMIA OF 10 HB, NORMAL ELECTROLYTES EXCEPT FOR ELEV CREATININE, NL COAGS, CXR SHOWED CARDIOMEGALY BUT WITHOUT PNA/PTX/EDEMA.... Diagnosis Primary Impression: LIGHTHEADED RESOLVED Additional Impression: MILD ANEMIA Additional Instructions: MAKE FOLLOWUP APPOINTMENT WITH DR NI FOR FURTHER REFERRAL TO NEUROLOGIST AND FURTHER WORKUP. TODAY MILD ANEMIA OF 10 WHICH DOESN'T REQUIRE TRANSFUSION. NEGATIVE TROPONIN, NO ELEVATED WHITE COUNT, CHEST XRAY DID NOT SHOW ANY FLUID IN YOUR LUNGS OR PNEUMONIA. EKG DID NOT SHOW ANY EVIDENCE OF HEART ATTACK..AND FLU NEGATIVE. YOU ARE REQUESTED TO FOLLOW UP WITH YOUR PRIMARY TOMORROW FOR FURTHER OUTPATIENT WORKUP OF YOUR DIZZINESS. Jensen Henao MD Jan 07, 2017 23:42
--- NOTE | 2017-01-07 23:53 | RADRPT ---
EXAM DATE/TIME: 01/07/2017 23:49 [place] COMPARISON: CHEST SINGLE AP, June 05, 2014, 8:49. INDICATIONS : Short of breath. MEDICAL HISTORY : Carcinoma, lung. Cardiovascular disease Diabetes mellitus type 2. Dialysis. SURGICAL HISTORY : CABG. ENCOUNTER: Initial ACUITY: 1 day PAIN SCORE: 0/10 LOCATION: Bilateral chest FINDINGS: The cardiac silhouette is normal in transverse diameter. Median sternotomy wires are present. Epidura l stimulator is present. The lungs are free of acute parenchymal opacity. No effusions are identified . There is eventration of the right hemidiaphragm.. there is stable scarring in the right hilum. CONCLUSION: 1. Cardiomegaly. No acute pulmonary disease. Tanmay Greenberg MD on January 07, 2017 at 23:48 Board Certified Radiologist. This report was verified electronically.
[2017-01-08 00:28] LABS: AUTOMATED NEUTROPHIL # 5.6 TH/MM3 (1.8-7.7); BASOPHIL # 0.1 TH/MM3 (0-0.2); EOSINOPHIL # 0.2 TH/MM3 (0-0.4); EOSINOPHIL % 2.6 % (0.0-4.0); HEMATOCRIT 30.7 % (35.0-46.0); HEMO FLAGS DIFF FINAL; LYMPH % 17.4 % (9.0-44.0); LYMPHOCYTE # 1.3 TH/MM3 (1.0-4.8); MEAN CELL VOLUME 94.2 FL (80.0-100.0); MEAN CORPUSCULAR HEMOGLOBIN 30.9 PG (27.0-34.0); MEAN CORPUSCULAR HGB CONC 32.8 % (32.0-36.0); MONO % 5.8 % (0.0-8.0); NEUT % 73.2 % (16.0-70.0); PLATELET COUNT 225 TH/MM3 (150-450); RED BLOOD COUNT 3.25 MIL/MM3 (4.00-5.30); RED CELL DISTRIBUTION WIDTH 19.3 % (11.6-17.2); WHITE BLOOD COUNT 7.6 TH/MM3 (4.0-11.0)
[2017-01-08 00:38] LABS: PROTHROMBIN TIME - PATIENT 10.5 SEC (9.8-11.6)
[2017-01-08 01:04] LABS: ANION GAP 5 MEQ/L (5-15); BICARBONATE 26.9 MEQ/L (21.0-32.0); BLOOD UREA NITROGEN 22 MG/DL (7-18); CHLORIDE 104 MEQ/L (98-107); GLOMERULAR FILTRATION RATE 11 ML/MIN (>89); POTASSIUM 5.1 MEQ/L (3.5-5.1); SODIUM (NA) 136 MEQ/L (136-145)
--- NOTE | 2017-01-08 07:35 | EKG ---
Date Performed: 01/08/2017 Time Performed: 00:31:26 PTAGE: 81 years EKG: Baseline artifact present Sinus rhythm INCOMPLETE RIGHT BUNDLE BRANCH BLOCK BORDERLINE ECG No significant change from prior electrocardiogr am. PREVIOUS TRACING : 09/11/2016 09.45 DOCTOR: Isaías Davis Interpretating Date/Time 01/08/2017 07:34:00
== END 2017-01-08 03:50 | disposition home or self-care (01) ==
LOC: NEPE 23:10
DX: R42 Dizziness and giddiness (principal); D64.9 Anemia, unspecified; R94.31 Abnormal electrocardiogram [ECG] [EKG]; N18.6 End stage renal disease; E11.9 Type 2 diabetes mellitus without complications; I12.0 Hypertensive chronic kidney disease with stage 5 chronic kidney disease or end stage renal disease; E07.9 Disorder of thyroid, unspecified; E78.00 Pure hypercholesterolemia, unspecified; Z99.2 Dependence on renal dialysis; Z85.118 Personal history of other malignant neoplasm of bronchus and lung; Z86.79 Personal history of other diseases of the circulatory system; Z87.448 Personal history of other diseases of urinary system
CPT/HCPCS: 71010; 80048; 83690; 84443; 84484; 85025; 85610; 87804; 93005